=== PATIENT | female | born 1955 | race Caucasian/White ===

== ENCOUNTER 2017-01-29 10:16 | Day surgery (SDC) | payer OTHER ==
[2017-01-25 08:22] VITALS: BMI 29.2
[~2017-01-29 10:16] MED LIST: LACTATED RINGERS 1,000 ML IV SCH; LIDOCAINE 1% 20 ML VIAL (10MG/ML) FOR IV START INTRADERMA PRN
[2017-01-29] MEDS ORDERED: LACTATED RINGERS 1,000 ML IV ONE (10:44)
[2017-01-29 10:48] VITALS: RESP 18; TEMP 98
[2017-01-29] MEDS ORDERED: LIDOCAINE 1% INJ 10MG/ML (20 ML MDV) ONE (11:36)
[2017-01-29] MEDS ORDERED: PROPOFOL 10 MG/ML 20 ML VIAL IV ONE (11:36)
--- NOTE | 2017-01-29 12:02 | P.PCN ---
Date of Procedure: 01/29/17 Procedure(s) Performed: Procedure: Esophagogastroduodenoscopy and biopsy. Preoperative diagnosis: Heartburn and intermittent dysphagia. Postoperative diagnosis: 1. Small sliding hiatal hernia with no obvious esophagitis or complicated reflux disease. 2. Mild antral gastritis. 3. Multiple biopsies obtained from the duodenum, antrum and esophagus. Preparation: HalfLytely prep. Sedation: Was provided by anesthesia. Brief clinical history: The patient is a 61-year-old female with chronic reflux symptoms over the years. She has been having sticky sensation, retrosternally, with certain foods, intermittently, over the last couple years or so in addition to her heartburn. No other alarm symptoms or bleeding. This evaluation is to assess the degree of esophagitis and rule out complicated reflux disease or other pathology. The patient has family history of colon cancer in her dad and she is due for a repeat colonoscopy in 2019, and has family history of stomach cancer in her mother. This would be her first upper endoscopy. Procedure: With the patient on her left lateral decubitus position and after informed consent and adequate sedation, I passed the Olympus-GIF 160 video upper endoscope through the cricopharyngeus down the esophagus. EG junction was around 38 cm from the incisors and there was a small sliding hiatal hernia. The endoscope was then passed into the stomach which was insufflated with air and inspected in detail including the retroflex view in the cardia. There was some mottling and erythema in the antrum but no ulcers or erosions. Pyloric channel did not show any ulcers. Duodenal bulb, post bulbar area and descending duodenum, otherwise, appeared within normal limits. I obtained biopsies from the duodenum, antrum and esophagus then the endoscope was withdrawn. The patient tolerated the procedure well. Plan: The patient was reassured. Will await biopsy results and make additional recommendations based on her course and biopsy results. I be happy to see in the office if she remains symptomatic. She will follow-up with you as planned.
[2017-01-29 12:12] VITALS: BP 136/88; PULSE 65
== END 2017-01-29 12:38 | disposition home or self-care (01) ==
LOC: ORWHC2ENDO 10:16
DX: K21.0 Gastro-esophageal reflux disease with esophagitis (principal); K29.50 Unspecified chronic gastritis without bleeding; K44.9 Diaphragmatic hernia without obstruction or gangrene; E78.5 Hyperlipidemia, unspecified; Z91.09 Other allergy status, other than to drugs and biological substances; Z79.82 Long term (current) use of aspirin; Z79.899 Other long term (current) drug therapy
CPT/HCPCS: 88305; 88342; 43239; J2001; J2704

== ENCOUNTER 2017-06-19 03:05 | Inpatient (IN) | payer OTHER ==
[2017-06-19] MEDS ORDERED: MORPHINE SULFATE 4 MG/ML SYRINGE IV STA ×2 (03:40→06:57)
[2017-06-19 04:08] LABS: Appearance,Urine Clear (Clear); Bilirubin,Urine Negative (Negative); Glucose,Urine (UA) Negative (Negative); Ketones,Urine Negative (Negative); Leukocyte Esterase,Urine Negative (Negative); Nitrite,Urine Negative (Negative); Protein,Urine Negative (Negative); Specific Gravity,Urine 1.008 (1.001-1.035); UA Billing (MACRO vs. MICRO) CHEM; Urobilinogen,Urine <2.0 mg/dL (<2.0)
[2017-06-19 04:20] LABS: ALT 38 U/L (9-52); AST 25 U/L (14-36); Alkaline Phosphatase 59 U/L (38-126); Amylase 36 U/L (30-110); Anion Gap 11 mmol/L; Blood Urea Nitrogen 9 mg/dL (7-17); C Reactive Protein 37.9 mg/L (<10.0); Calcium 9.5 mg/dL (8.4-10.2); Carbon Dioxide 26 mmol/L (22-30); Chloride 104 mmol/L (98-107); Glucose 100 mg/dL (74-99); Non-African American GFR(MDRD) >60 (>60 ml/min/1.73 sqM); Potassium 4.1 mmol/L (3.5-5.1); Sodium 141 mmol/L (137-145); Total Bilirubin 0.4 mg/dL (0.2-1.3); Total Protein 6.6 g/dL (6.3-8.2)
[2017-06-19 04:40] LABS: Basophils % (A) 1 %; CH 32.6; Eosinophils # (A) 0.1 k/uL (0-0.7); Eosinophils % (A) 2 %; HCT 40.1 % (34.0-46.0); HDW 2.23; HGB 13.1 gm/dL (11.4-16.0); Luc # (Auto) 0.08; Luc % (Auto) 1; Lymphocytes % (A) 13 %; MCH 31.5 pg (25.0-35.0); MCHC 32.8 g/dL (31.0-37.0); MCV 96.2 fL (80.0-100.0); Mean Platelet Volume 8.8; Monocytes # (A) 0.4 k/uL (0-1.0); Monocytes % (A) 5 %; Neutrophils # (A) 5.9 k/uL (1.3-7.7); Neutrophils % (A) 79 %; RBC 4.17 m/uL (3.80-5.40); RDW 13.1 % (11.5-15.5); WBC 7.5 k/uL (3.8-10.6); WBC (Perox) 7.06
--- NOTE | 2017-06-19 05:22 | CT ---
EXAM: CT Abdomen and Pelvis Without Intravenous Contrast CLINICAL HISTORY: Reason: Pain TECHNIQUE: Axial computed tomography images of the abdomen and pelvis without intravenous contrast. CTDI is 9.10 mGy and DLP is 417.30 mGy-cm. This CT exam was performed using one or more of the following dose reduction techniques: automated exposure control, adjustment of the mA and/or kV according to patient size, and/or use of iterative reconstruction technique. COMPARISON: None. FINDINGS: Lower thorax: Atelectatic changes are seen involving both lower lobes, mild. ABDOMEN: Liver: Unremarkable. Gallbladder and bile ducts: Cholelithiasis is suspected. No ductal dilation. Pancreas: Unremarkable. No ductal dilation. Spleen: Unremarkable. No splenomegaly. Adrenals: Unremarkable. No mass. Kidneys and ureters: Unremarkable. No obstructing stones. No hydronephrosis. Stomach and bowel: Evaluation of the bowel is limited without the use of oral contrast material. Extensive colonic diverticulosis is seen. Wall thickening of the mid/distal transverse colon is seen in the region of colonic diverticula with associated pericolonic fatty infiltration. Constellation of findings are suggestive of acute diverticulitis. Mild pericolonic fatty infiltration is also seen involving the proximal transverse and mid descending colon in a region of extensive colonic diverticula. Constellation of findings are suggestive of acute diverticulitis. No obstruction. Appendix: No findings to suggest acute appendicitis. PELVIS: Bladder: Unremarkable. No stones. Reproductive: The uterus is not seen, likely representing prior hysterectomy. ABDOMEN and PELVIS: Intraperitoneal space: No evidence of free air. No evidence of fluid collection. A small amount of pelvic free fluid is seen, likely related to the above-mentioned findings. Bones/joints: Evaluation of the osseous structures demonstrates moderate degenerative changes. No acute fracture. No dislocation. Soft tissues: A small fat-containing umbilical hernia seen. Vasculature: Mild/moderate atherosclerotic vascular calcifications are seen involving the intra-abdominal aorta. No abdominal aortic aneurysm. Lymph nodes: Unremarkable. No enlarged lymph nodes. IMPRESSION: Acute diverticulitis involving the mid/distal transverse colon and, to lesser extent, the proximal transverse and mid descending colon. No evidence of fluid collection. No evidence of perforation.
[2017-06-19] MEDS ORDERED: MORPHINE SULFATE 4 MG/ML SYRINGE IV PRN (07:14)
[2017-06-19] MEDS ORDERED: NALOXONE 0.4 MG/ML 1 ML VIAL IV PRN (07:14)
[2017-06-19] MEDS ORDERED: ONDANSETRON 4 MG/2 ML VIAL IVP PRN (07:14)
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
[2017-06-19] MEDS: SODIUM CHLORIDE 0.9% 1,000 ML IV SCH ×2 (07:46→09:46)
[2017-06-19] MEDS: metroNIDAZOLE-NS PMX 500 MG in SALINE 1 100ML.BAG IVPB SCH ×3 (09:55→23:13)
[2017-06-19] MEDS: ASPIRIN 81 MG CHEW PO SCH (10:03)
[2017-06-19] MEDS: FAMOTIDINE 20 MG TAB PO SCH ×2 (10:03→20:09)
[2017-06-19] MEDS: DEXTROSE 5%-0.45% NACL 1,000 ML IV SCH ×2 (11:42→23:13)
[2017-06-19] MEDS: Lifitegrast [Xiidra] 1 DROP BOTH EYES SCH ×2 (11:45→20:09)
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
[2017-06-19] MEDS: MORPHINE SULFATE 2 MG/ML SYRINGE IV PRN ×3 (11:50→20:10)
[2017-06-19] MEDS: MULTIVITAMINS, THERA 1 EACH TAB PO SCH (14:16)
[2017-06-19] MEDS: LEVOFLOXACIN 750MG-D5W PMX 750 MG in DEXTROSE/WATER 1 150ML.BAG IVPB SCH (14:16)
[2017-06-19] MEDS: CHOLECALCIFEROL 1,000 UNIT TAB PO SCH (14:16)
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
[2017-06-19] MEDS: ATORVASTATIN 10 MG TAB PO SCH (20:09)
[2017-06-20] MEDS: MORPHINE SULFATE 2 MG/ML SYRINGE IV PRN (00:16)
[2017-06-20] MEDS: DEXTROSE 5%-0.45% NACL 1,000 ML IV SCH ×2 (07:45→20:00)
[2017-06-20] MEDS: metroNIDAZOLE-NS PMX 500 MG in SALINE 1 100ML.BAG IVPB SCH ×2 (07:45→15:21)
[2017-06-20] MEDS ORDERED: ACETAMINOPHEN IV (For NPO) 1,000 MG in EMPTY BAG 1 BAG IVPB STA (09:15)
[2017-06-20] MEDS ORDERED: MORPHINE SULFATE 2 MG/ML SYRINGE IV PRN (09:16)
[2017-06-20] MEDS: ASPIRIN 81 MG CHEW PO SCH (09:17)
[2017-06-20] MEDS: FAMOTIDINE 20 MG TAB PO SCH ×2 (09:17→20:19)
--- NOTE | 2017-06-20 09:21 | P.PN ---
Subjective A pleasant 61-year-old female being seen on rounds this morning. Patients being followed by surgical service at the request of the attending in a patient who developed left lower quadrant pain with a CAT scan showing evidence of left- sided diverticulitis. Patient states she's had multiple attacks of diverticulitis over the last several months. This morning the patient states there is a significant improvement in the left lower quadrant pain is is improving. Chief complaint this morning is migraine headache Objective - Vital Signs Vital signs: Vital Signs Temp 97.9 F 06/20/17 07:00 Pulse 63 06/20/17 07:00 Resp 16 06/20/17 07:00 BP 107/71 06/20/17 07:00 Pulse Ox 96 06/20/17 07:00 Intake & Output 06/19/17 06/20/17 06/20/17 18:59 06:59 18:59 Intake Total 850 1250 Output Total 500 Balance 850 750 Intake: Intake, IV Titration 850 1200 Amount Dextrose 5%-0.45% NaCl 1, 650 1200 000 ml @ 100 mls/hr IV . Q10H [facility] Rx#:[id number] Levofloxacin 750Mg-D5w 100 Pmx 750 mg In Dextrose/ Water 1 150ml.bag @ 100 mls/hr IVPB DAILY [facility] Rx# :[id number] metroNIDAZOLE-NS PMX 500 100 mg In Saline 1 100ml.bag @ 100 mls/hr IVPB Q8H [facility] Rx#:[id number] Oral 50 Output: Urine 500 Other: Voiding Method Toilet # Voids 2 - Exam Physical exam 61-year-old female pleasant cooperative resting in bed states left lower quadrant pain improving Lungs essentially clear adequate air movement Heart S1-S2 audible regular Abdomen soft not distended slight tenderness left lower quadrant bowel tones present states urinating no difficulty no reports of nausea vomiting no stool Extremities no edema - Labs CBC & Chem 7: 06/19/17 03:55 06/19/17 03:55 Assessment and Plan Plan: Impression Present on admission left lower quadrant pain suspect due to left-sided diverticulitis as evident on a CAT scan of the abdomen pelvis History of multiple attacks of diverticulitis over the last 6 months History of migraine headaches Plan Pain control DVT and GI prophylaxis Continue to monitor we'll hold the diet if pain continues to improve. Clear liquid Continue IV antibiotic Flagyl and Levaquin as ordered Treat the migraine headache with IV Tylenol 1 dose IV fluid as ordered The above impression and plan of care have been discussed and directed by signing physician. Grace Kelley nurse practitioner acting as scribe for signing physician.
[2017-06-20] MEDS: Lifitegrast [Xiidra] 1 DROP BOTH EYES SCH ×2 (09:32→20:19)
[2017-06-20] MEDS: LEVOFLOXACIN 750MG-D5W PMX 750 MG in DEXTROSE/WATER 1 150ML.BAG IVPB SCH (10:17)
[2017-06-20 10:44] VITALS: BMI 28.7
[2017-06-20] MEDS: CHOLECALCIFEROL 1,000 UNIT TAB PO SCH (12:51)
[2017-06-20] MEDS: MULTIVITAMINS, THERA 1 EACH TAB PO SCH (12:51)
--- NOTE | 2017-06-20 14:24 | P.PN ---
Subjective Patient is doing a lot better today. Pain is improving. She is still nothing by mouth. Objective - Vital Signs Vital signs: Vital Signs Temp 97.9 F 06/20/17 07:00 Pulse 63 06/20/17 07:00 Resp 16 06/20/17 07:00 BP 107/71 06/20/17 07:00 Pulse Ox 96 06/20/17 07:00 Intake & Output 06/19/17 06/20/17 06/20/17 18:59 06:59 18:59 Intake Total 850 1250 100 Output Total 500 Balance 850 750 100 Weight 71.214 kg Intake: Intake, IV Titration 850 1200 Amount Dextrose 5%-0.45% NaCl 1, 650 1200 000 ml @ 100 mls/hr IV . Q10H [facility] Rx#:[id number] Levofloxacin 750Mg-D5w 100 Pmx 750 mg In Dextrose/ Water 1 150ml.bag @ 100 mls/hr IVPB DAILY [facility] Rx# :[id number] metroNIDAZOLE-NS PMX 500 100 mg In Saline 1 100ml.bag @ 100 mls/hr IVPB Q8H [facility] Rx#:[id number] Oral 50 100 Output: Urine 500 Other: Voiding Method Toilet # Voids 2 2 - Exam General: The patient is awake and alert, in no distress Eye: there is normal conjunctiva bilaterally. Neck: The neck is supple, there is no JVD. Cardiovascular: Normal S1-S2, no S3-S4, no murmurs. Respiratory: Lungs clear to auscultation bilaterally Gastrointestinal: Abdomen is soft, nontender Musculoskeletal: There is no pedal edema. Neurological:. Speech is normal. Skin: Skin is warm and dry - Labs CBC & Chem 7: 06/19/17 03:55 06/19/17 03:55 Assessment and Plan Plan: 1. Acute diverticulitis involving the mid/distal transverse colon 2. Recurrent episodes of diverticulitis 3. mixed hyperlipidemia today, I reviewed her medication list lab work results. Continue IV fluid hydration and IV antibiotic with Levaquin and Flagyl. Pain control. Antiemetic as needed. Nothing by mouth for now as chips and clear liquids later on today if remains stable. Consulted general surgery for further evaluation of recurrent diverticulitis.
[2017-06-20] MEDS: ATORVASTATIN 10 MG TAB PO SCH (20:19)
[2017-06-21] MEDS: metroNIDAZOLE-NS PMX 500 MG in SALINE 1 100ML.BAG IVPB SCH ×3 (00:33→16:50)
[2017-06-21] MEDS: DEXTROSE 5%-0.45% NACL 1,000 ML IV SCH ×2 (05:56→14:26)
[2017-06-21] MEDS: FAMOTIDINE 20 MG TAB PO SCH ×2 (09:02→19:43)
[2017-06-21] MEDS: ASPIRIN 81 MG CHEW PO SCH (09:02)
[2017-06-21] MEDS: Lifitegrast [Xiidra] 1 DROP BOTH EYES SCH ×2 (09:03→19:43)
[2017-06-21] MEDS: LEVOFLOXACIN 750MG-D5W PMX 750 MG in DEXTROSE/WATER 1 150ML.BAG IVPB SCH (10:24)
--- NOTE | 2017-06-21 11:05 | P.PN ---
Subjective 61-year-old female being seen on rounds this morning patient continues to report having left lower quadrant abdominal discomfort states it's improving but continues to persist. Patient states is tolerating the clear liquid continues to report having cramping to the left lower abdominal wall. Reports no nausea no vomiting. Migraine headache gone this morning remains afebrile no labs. Patient is being followed by surgical service at the request of the attending for follow-up on the left lower quadrant pain with a CAT scan of the abdomen and pelvis showing left-sided diverticulitis. Patient has failed outpatient treatment had been on antibiotics in clear liquids prior to be presenting with the above-mentioned symptoms Objective - Vital Signs Vital signs: Vital Signs Temp 97.9 F 06/21/17 07:00 Pulse 62 06/21/17 07:00 Resp 16 06/21/17 07:00 BP 129/60 06/21/17 07:00 Pulse Ox 96 06/21/17 07:00 Intake & Output 06/20/17 06/21/17 06/21/17 18:59 06:59 18:59 Intake Total 100 2500 Balance 100 2500 Weight 71.214 kg Intake: Intake, IV Titration 2400 Amount Dextrose 5%-0.45% NaCl 1, 2400 000 ml @ 100 mls/hr IV . Q10H [facility] Rx#:[id number] Oral 100 100 Other: Voiding Method Toilet Toilet # Voids 2 2 # Bowel Movements 1 - Exam Physical exam 61-year-old female resting in bed continues to report having left lower quadrant pain has not completely resolved" Lungs essentially clear adequate air movement on room air Heart S1-S2 audible regular denying chest pain Abdomen soft not distended bowel tones present slight tenderness to the left lower quadrant urinating no difficulty states no stool Extremities no edema noted - Labs CBC & Chem 7: 06/19/17 03:55 06/19/17 03:55 Assessment and Plan Plan: Impression Present on admission left lower quadrant pain suspect due to left-sided diverticulitis as evident on a CAT scan of the abdomen pelvis History of multiple attacks of recurrent diverticulitis over the last 6 months History of migraine headaches Plan Pain control DVT and GI prophylaxis Continue to monitor we'll hold the diet if pain continues to improve. Clear liquid Continue IV antibiotic Flagyl and Levaquin as ordered IV fluid as ordered The above impression and plan of care have been discussed and directed by signing physician. Grace Kelley nurse practitioner acting as scribe for signing physician.
[2017-06-21] MEDS: MULTIVITAMINS, THERA 1 EACH TAB PO SCH (12:05)
[2017-06-21] MEDS: CHOLECALCIFEROL 1,000 UNIT TAB PO SCH (12:05)
[2017-06-21] MEDS ORDERED: Magnesium Replacement Protocol 1 EACH MISC MISCELLANE PRN (14:10)
[2017-06-21] MEDS ORDERED: Potassium Replacement Protocol 1 EACH MISC MISCELLANE PRN (14:10)
--- NOTE | 2017-06-21 14:12 | P.PN ---
Subjective Patient is doing a lot better today. Pain is improving. She was started on clear liquids and tolerating with no difficulty Objective - Vital Signs Vital signs: Vital Signs Temp 97.9 F 06/21/17 07:00 Pulse 62 06/21/17 07:00 Resp 16 06/21/17 07:00 BP 129/60 06/21/17 07:00 Pulse Ox 96 06/21/17 07:00 Intake & Output 06/20/17 06/21/17 06/21/17 18:59 06:59 18:59 Intake Total 100 2500 Balance 100 2500 Weight 71.214 kg Intake: Intake, IV Titration 2400 Amount Dextrose 5%-0.45% NaCl 1, 2400 000 ml @ 100 mls/hr IV . Q10H [facility] Rx#:[id number] Oral 100 100 Other: Voiding Method Toilet Toilet # Voids 2 2 # Bowel Movements 1 - Exam General: The patient is awake and alert, in no distress Eye: there is normal conjunctiva bilaterally. Neck: The neck is supple, there is no JVD. Cardiovascular: Normal S1-S2, no S3-S4, no murmurs. Respiratory: Lungs clear to auscultation bilaterally Gastrointestinal: Abdomen is soft, nontender Musculoskeletal: There is no pedal edema. Neurological:. Speech is normal. Skin: Skin is warm and dry - Labs CBC & Chem 7: 06/19/17 03:55 06/19/17 03:55 Assessment and Plan Plan: 1. Acute diverticulitis involving the mid/distal transverse colon 2. Recurrent episodes of diverticulitis 3. mixed hyperlipidemia today, I reviewed her medication list lab work results. Continue IV fluid hydration and IV antibiotic with Levaquin and Flagyl. Pain control. Antiemetic as needed. Advance diet as directed by general surgery. Consulted general surgery for further evaluation of recurrent diverticulitis. Anticipate discharge home within the next day or 2
[2017-06-21] MEDS: ATORVASTATIN 10 MG TAB PO SCH (19:43)
[2017-06-22] MEDS: metroNIDAZOLE-NS PMX 500 MG in SALINE 1 100ML.BAG IVPB SCH ×5 (00:16→23:23)
[2017-06-22 07:00] LABS: Basophils % (A) 0 %; CH 32.5; CHCM 34.2; Eosinophils # (A) 0.1 k/uL (0-0.7); Eosinophils % (A) 4 %; HCT 37.4 % (34.0-46.0); HDW 2.42; HGB 12.5 gm/dL (11.4-16.0); Luc # (Auto) 0.08; Luc % (Auto) 2; Lymphocytes # (A) 1.2 k/uL (1.0-4.8); Lymphocytes % (A) 32 %; MCHC 33.5 g/dL (31.0-37.0); MCV 95.4 fL (80.0-100.0); Mean Platelet Volume 8.9; Monocytes # (A) 0.3 k/uL (0-1.0); Monocytes % (A) 8 %; Neutrophils # (A) 1.9 k/uL (1.3-7.7); Neutrophils % (A) 54 %; RBC 3.92 m/uL (3.80-5.40); RDW 13.2 % (11.5-15.5); WBC 3.6 k/uL (3.8-10.6); WBC (Perox) 3.64
[2017-06-22 07:12] LABS: ALT 29 U/L (9-52); AST 23 U/L (14-36); Alkaline Phosphatase 42 U/L (38-126); Anion Gap 8 mmol/L; Blood Urea Nitrogen 6 mg/dL (7-17); Calcium 9.2 mg/dL (8.4-10.2); Carbon Dioxide 26 mmol/L (22-30); Chloride 108 mmol/L (98-107); Glucose 91 mg/dL (74-99); Magnesium 1.9 mg/dL (1.6-2.3); Non-African American GFR(MDRD) >60 (>60 ml/min/1.73 sqM); Potassium 3.8 mmol/L (3.5-5.1); Sodium 142 mmol/L (137-145); Total Bilirubin 0.4 mg/dL (0.2-1.3); Total Protein 5.9 g/dL (6.3-8.2)
[2017-06-22 07:24] VITALS: RESP 16
[2017-06-22] MEDS: LEVOFLOXACIN 750MG-D5W PMX 750 MG in DEXTROSE/WATER 1 150ML.BAG IVPB SCH (09:24)
[2017-06-22] MEDS: FAMOTIDINE 20 MG TAB PO SCH ×2 (09:26→20:26)
[2017-06-22] MEDS: ASPIRIN 81 MG CHEW PO SCH (09:26)
[2017-06-22] MEDS: Lifitegrast [Xiidra] 1 DROP BOTH EYES SCH ×2 (09:26→20:26)
--- NOTE | 2017-06-22 11:38 | P.PN ---
Subjective Patient is doing well today. Diet is being advanced by general surgery. Objective - Vital Signs Vital signs: Vital Signs Temp 97 F L 06/22/17 07:00 Pulse 61 06/22/17 07:00 Resp 16 06/22/17 07:00 BP 125/62 06/22/17 07:00 Pulse Ox 99 06/22/17 07:00 Intake & Output 06/21/17 06/22/17 06/22/17 18:59 06:59 18:59 Intake Total 600 Output Total 4 750 Balance -4 -150 Intake: Oral 600 Output: Urine 1 750 Stool 3 - Exam General: The patient is awake and alert, in no distress Eye: there is normal conjunctiva bilaterally. Neck: The neck is supple, there is no JVD. Cardiovascular: Normal S1-S2, no S3-S4, no murmurs. Respiratory: Lungs clear to auscultation bilaterally Gastrointestinal: Abdomen is soft, nontender Musculoskeletal: There is no pedal edema. Neurological:. Speech is normal. Skin: Skin is warm and dry - Labs CBC & Chem 7: 06/22/17 06:04 06/22/17 06:04 Labs: Abnormal Lab Results - Last 24 Hours (Table) 06/22/17 06/22/17 Range/Units 06:04 06:04 WBC 3.6 L (3.8-10.6) k/uL Chloride 108 H (98-107) mmol/L BUN 6 L (7-17) mg/dL Total Protein 5.9 L (6.3-8.2) g/dL Assessment and Plan Plan: 1. Acute diverticulitis involving the mid/distal transverse colon 2. Recurrent episodes of diverticulitis 3. mixed hyperlipidemia today, I reviewed her medication list lab work results. Continue IV fluid hydration and IV antibiotic with Levaquin and Flagyl. Pain control. Antiemetic as needed. Advance diet as directed by general surgery. Encouraged ambulation. Anticipate discharge home within the next day or 2
--- NOTE | 2017-06-22 13:03 | P.PN ---
Subjective Principal diagnosis: Diverticulitis Patient doing well today no combines of abdominal pain tolerating her clear liquid diet. No nausea vomiting. Objective - Vital Signs Vital signs: Vital Signs Temp 97 F L 06/22/17 07:00 Pulse 61 06/22/17 07:00 Resp 16 06/22/17 07:00 BP 125/62 06/22/17 07:00 Pulse Ox 99 06/22/17 07:00 Intake & Output 06/21/17 06/22/17 06/22/17 18:59 06:59 18:59 Intake Total 600 Output Total 4 750 Balance -4 -150 Intake: Oral 600 Output: Urine 1 750 Stool 3 - Constitutional General appearance: Present: cooperative - Cardiovascular Rhythm: regular - Gastrointestinal Gastrointestinal Comment(s): Soft nontender nondistended no rebound rigidity or guarding - Psychiatric Psychiatric: Present: A&O x's 3 - Labs CBC & Chem 7: 06/22/17 06:04 06/22/17 06:04 Labs: Abnormal Lab Results - Last 24 Hours (Table) 06/22/17 06/22/17 Range/Units 06:04 06:04 WBC 3.6 L (3.8-10.6) k/uL Chloride 108 H (98-107) mmol/L BUN 6 L (7-17) mg/dL Total Protein 5.9 L (6.3-8.2) g/dL Assessment and Plan (1) Diverticulitis Status: Acute Plan: Patient advanced to full liquid diet. If tolerating she can be discharged home on antibiotics. She can follow-up with
[2017-06-22] MEDS: CHOLECALCIFEROL 1,000 UNIT TAB PO SCH (13:11)
[2017-06-22] MEDS: MULTIVITAMINS, THERA 1 EACH TAB PO SCH (13:11)
[2017-06-22] MEDS: ATORVASTATIN 10 MG TAB PO SCH (20:26)
[2017-06-22] MEDS: DEXTROSE 5%-0.45% NACL 1,000 ML IV SCH (23:39)
[2017-06-23 07:19] LABS: Basophils % (A) 0 %; CH 32.3; CHCM 34.2; Eosinophils # (A) 0.2 k/uL (0-0.7); Eosinophils % (A) 4 %; HCT 37.5 % (34.0-46.0); HDW 2.44; HGB 12.5 gm/dL (11.4-16.0); Luc # (Auto) 0.07; Luc % (Auto) 2; Lymphocytes # (A) 1.4 k/uL (1.0-4.8); Lymphocytes % (A) 34 %; MCH 31.5 pg (25.0-35.0); MCHC 33.2 g/dL (31.0-37.0); MCV 94.8 fL (80.0-100.0); Mean Platelet Volume 8.7; Monocytes # (A) 0.3 k/uL (0-1.0); Monocytes % (A) 7 %; Neutrophils # (A) 2.1 k/uL (1.3-7.7); Neutrophils % (A) 53 %; RBC 3.96 m/uL (3.80-5.40); RDW 12.9 % (11.5-15.5); WBC (Perox) 3.87
[2017-06-23 07:21] VITALS: BP 125/76; PULSE 62; TEMP 97.4
[2017-06-23 07:37] LABS: ALT 30 U/L (9-52); AST 27 U/L (14-36); Alkaline Phosphatase 39 U/L (38-126); Anion Gap 9 mmol/L; Blood Urea Nitrogen 8 mg/dL (7-17); Calcium 9.1 mg/dL (8.4-10.2); Carbon Dioxide 24 mmol/L (22-30); Chloride 109 mmol/L (98-107); Glucose 84 mg/dL (74-99); Magnesium 1.9 mg/dL (1.6-2.3); Non-African American GFR(MDRD) >60 (>60 ml/min/1.73 sqM); Potassium 4.4 mmol/L (3.5-5.1); Sodium 142 mmol/L (137-145); Total Bilirubin 0.2 mg/dL (0.2-1.3); Total Protein 5.5 g/dL (6.3-8.2)
[2017-06-23] MEDS: metroNIDAZOLE-NS PMX 500 MG in SALINE 1 100ML.BAG IVPB SCH (07:54)
[2017-06-23] MEDS: FAMOTIDINE 20 MG TAB PO SCH (07:56)
[2017-06-23] MEDS: Lifitegrast [Xiidra] 1 DROP BOTH EYES SCH (07:56)
[2017-06-23] MEDS: ASPIRIN 81 MG CHEW PO SCH (07:56)
[2017-06-23] MEDS: LEVOFLOXACIN 750MG-D5W PMX 750 MG in DEXTROSE/WATER 1 150ML.BAG IVPB SCH (09:47)
--- NOTE | 2017-06-23 12:51 | P.PN ---
Subjective Principal diagnosis: Diverticulitis Patient doing well today no combines of abdominal pain tolerating her soft diet. No nausea vomiting. Objective - Vital Signs Vital signs: Vital Signs Temp 97.4 F L 06/23/17 07:00 Pulse 62 06/23/17 07:00 Resp 16 06/23/17 07:00 BP 125/76 06/23/17 07:00 Pulse Ox 98 06/23/17 07:00 Intake & Output 06/22/17 06/23/17 06/23/17 18:59 06:59 18:59 Intake Total 400 1150 Balance 400 1150 Intake: IV 400 300 Dextrose 5%-0.45% NaCl 1, 400 300 000 ml @ 50 mls/hr IV . Q20H [facility] Rx#:[id number] Intake, IV Titration 150 Amount Dextrose 5%-0.45% NaCl 1, 150 000 ml @ 50 mls/hr IV . Q20H [facility] Rx#:[id number] Oral 700 Other: Voiding Method Toilet # Voids 1 2 - Constitutional General appearance: Present: average body habitus - Respiratory Details: Nonlabored - Cardiovascular Rhythm: regular - Gastrointestinal Gastrointestinal Comment(s): Soft nontender nondistended - Psychiatric Psychiatric: Present: A&O x's 3 - Labs CBC & Chem 7: 06/23/17 06:07 06/23/17 06:07 Labs: Abnormal Lab Results - Last 24 Hours (Table) 06/23/17 Range/Units 06:07 Chloride 109 H (98-107) mmol/L Total Protein 5.5 L (6.3-8.2) g/dL Albumin 3.4 L (3.5-5.0) g/dL Assessment and Plan (1) Diverticulitis Status: Acute Plan: Patient is tolerating a soft diet. She is surgically stable for discharge on PO antibiotics and follow up with Dr. Penaloza in the clinic
--- NOTE | 2017-06-23 13:47 | P.DS ---
Providers Date of admission: 06/19/17 07:14 Expected date of discharge: 06/23/17 Attending physician: Desiree Dominguez Consults: 06/19/17 11:39 Consult Physician Routine Consulting Provider: Zain Penaloza Consult Reason/Comments: recurrent diverticulitis Do you want consulting provider notified?: Yes Primary care physician: Britta Chavis Hospital Course: 1. Acute diverticulitis involving the mid/distal transverse colon 2. Recurrent episodes of diverticulitis 3. mixed hyperlipidemia Patient's overall clinical condition improved significantly with supportive care and conservative management. She will finish antibiotic course with Levaquin and Flagyl at home for a total of 14 days. She will follow up as directed with her primary care physician. She will need a colonoscopy within the next 6 weeks. Patient Condition at Discharge: Fair Plan - Discharge Summary New Discharge Prescriptions: New Levofloxacin [Levaquin] 500 mg PO DAILY #7 tab metroNIDAZOLE [Flagyl] 500 mg PO Q8HR #21 tab Continue Multivitamins, Thera [Multivitamin (formulary)] 1 tab PO DAILY Cholecalciferol [Vitamin D3] 5,000 unit PO DAILY Aspirin [Adult Low Dose Aspirin EC] 81 mg PO DAILY Simvastatin [Zocor] 10 mg PO HS Lifitegrast [Xiidra] 1 dropper BOTH EYES BID Discontinued metroNIDAZOLE [Flagyl] 500 mg PO BID Ciprofloxacin HCl [Cipro] 500 mg PO Q12HR Discharge Medication List Aspirin [Adult Low Dose Aspirin EC] 81 mg PO DAILY 01/25/17 [History] Cholecalciferol [Vitamin D3] 5,000 unit PO DAILY 01/25/17 [History] Lifitegrast [Xiidra] 1 dropper BOTH EYES BID 01/25/17 [History] Multivitamins, Thera [Multivitamin (formulary)] 1 tab PO DAILY 01/25/17 [History ] Simvastatin [Zocor] 10 mg PO HS 01/25/17 [History] Levofloxacin [Levaquin] 500 mg PO DAILY #7 tab 06/23/17 [Rx] metroNIDAZOLE [Flagyl] 500 mg PO Q8HR #21 tab 06/23/17 [Rx] Follow up Appointment(s)/Referral(s): Britta Chavis MD [Primary Care Provider] - 1-2 days Discharge Disposition: HOME SELF-CARE
[2017-06-23] MEDS ORDERED: metroNIDAZOLE 500 MG TAB PO SCH (16:00)
[2017-06-24] MEDS ORDERED: LEVOFLOXACIN 750 MG TAB PO SCH (09:00)
== END 2017-06-23 14:20 | disposition home or self-care (01) | DRG 392 ==
LOC: EC 03:05 → 3SUR 07:14
PROVIDERS: ADMIT Internal Medicine; ATTEND Internal Medicine
DX: K57.92 Diverticulitis of intestine, part unspecified, without perforation or abscess without bleeding (principal); E78.2 Mixed hyperlipidemia; K21.9 Gastro-esophageal reflux disease without esophagitis; M17.0 Bilateral primary osteoarthritis of knee; M19.041 Primary osteoarthritis, right hand; M19.042 Primary osteoarthritis, left hand; Z79.899 Other long term (current) drug therapy; Z79.82 Long term (current) use of aspirin; Z80.3 Family history of malignant neoplasm of breast; Z80.0 Family history of malignant neoplasm of digestive organs; Z87.891 Personal history of nicotine dependence; Z87.828 Personal history of other (healed) physical injury and trauma; Z98.41 Cataract extraction status, right eye; Z98.42 Cataract extraction status, left eye; Z86.69 Personal history of other diseases of the nervous system and sense organs; Z87.19 Personal history of other diseases of the digestive system; Z90.710 Acquired absence of both cervix and uterus
CPT/HCPCS: 36415; 74176; 80053; 81003; 82150; 83690; 83735; 85025; 86140; 96374; 96376; 99285

== ENCOUNTER → 2017-07-12 | Outpatient (CLI) | payer OTHER | END | disposition home or self-care (01) | LOC: LABPAT 12:27 | PROVIDERS: ATTEND Surgery | DX: Z01.812 Encounter for preprocedural laboratory examination (principal); K57.92 Diverticulitis of intestine, part unspecified, without perforation or abscess without bleeding | CPT/HCPCS: 93005 ==

== ENCOUNTER 2017-07-17 07:53 | Day surgery (SDC) | payer OTHER ==
[2017-07-10 16:42] VITALS: BMI 28.7
[2017-07-17 08:08] VITALS: RESP 16; TEMP 98.2
[2017-07-17] MEDS ORDERED: LIDOCAINE 1% 20 ML VIAL (10MG/ML) FOR IV START INTRADERMA ONE (08:10)
[2017-07-17] MEDS ORDERED: LIDOCAINE 1% INJ 10MG/ML (20 ML MDV) ONE (09:28)
[2017-07-17] MEDS ORDERED: PROPOFOL 10 MG/ML 20 ML VIAL IV ONE (09:28)
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
--- NOTE | 2017-07-17 09:53 | P.OP ---
Date of Procedure: 07/17/17 Preoperative Diagnosis: Diverticulitis Postoperative Diagnosis: Diverticulosis Procedure(s) Performed: Colonoscopy Anesthesia: MAC Surgeon: Zain Penaloza Pathology: none sent Condition: stable Disposition: PACU Description of Procedure: The patient's placed on the endoscopy table in the lateral position. The digital rectal exam was performed which revealed no abnormalities. Flexible colonoscope was then placed patient anus and passed throughout the entire colon. The ileocecal valve was visualized. The cecum and ascending colon appeared normal. In the transverse colon was a few scattered diverticula. The scope was then brought back in the descending and sigmoid colon there was a few scattered diverticula. Scope was then brought back the rectum this appeared normal. Scope was withdrawn for patient.
[2017-07-17 10:23] VITALS: BP 130/79; PULSE 63
== END 2017-07-17 10:45 | disposition home or self-care (01) ==
LOC: ORWHC2ENDO 07:53
PROVIDERS: ATTEND Surgery
DX: K57.30 Diverticulosis of large intestine without perforation or abscess without bleeding (principal); K21.9 Gastro-esophageal reflux disease without esophagitis; K44.9 Diaphragmatic hernia without obstruction or gangrene; E78.5 Hyperlipidemia, unspecified; M19.90 Unspecified osteoarthritis, unspecified site; F41.9 Anxiety disorder, unspecified; Z80.0 Family history of malignant neoplasm of digestive organs; Z79.82 Long term (current) use of aspirin; Z79.899 Other long term (current) drug therapy; Z91.041 Radiographic dye allergy status
CPT/HCPCS: 45378; J2001; J2704

== ENCOUNTER 2017-07-18 07:27 | Inpatient (IN) | payer OTHER, BC ==
[2017-07-10 15:40] VITALS: BMI 28.7
[~2017-07-18 07:27] MED LIST changes: +DEXAMETHASONE SOD PHOSPHATE 10 MG/ML 1 ML VIAL IV ONE; +HEPARIN SODIUM,PORCINE 5,000 UNIT/ML 1 ML VIAL SQ ONE; +HYDROmorphone 1 MG/ML 1 ML SYRINGE IVP PRN; -LACTATED RINGERS 1,000 ML IV SCH; -LIDOCAINE 1% 20 ML VIAL (10MG/ML) FOR IV START INTRADERMA PRN; +MIDAZOLAM 2 MG/2 ML VIAL IV PRN; +ONDANSETRON 4 MG/2 ML VIAL IVP ONE; +ceFAZolin 2 GM in SODIUM CHLORIDE 0.9% 100 ML IVPB ONE; +metroNIDAZOLE-NS PMX 500 MG in SALINE 1 100ML.BAG IVPB ONE
[2017-07-18] MEDS ORDERED: LIDOCAINE 1% 20 ML VIAL (10MG/ML) FOR IV START INTRADERMA ONE (08:29)
[2017-07-18] MEDS: LACTATED RINGERS 1,000 ML IV SCH (08:29)
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
[2017-07-18] MEDS ORDERED: GLYCOPYRROLATE 0.2 MG/ML 2 ML VIAL ONE (09:40)
[2017-07-18] MEDS ORDERED: LIDOCAINE 1% INJ 10MG/ML (20 ML MDV) ONE (09:40)
[2017-07-18] MEDS ORDERED: MIDAZOLAM 2 MG/2 ML VIAL ONE (09:40)
[2017-07-18] MEDS ORDERED: SUCCINYLCHOLINE CHLORIDE 100 MG/5 ML SYR IV ONE (09:40)
[2017-07-18] MEDS ORDERED: ROCURONIUM BROMIDE 10 MG/ML 10 ML VIAL IV ONE (09:40)
[2017-07-18] MEDS ORDERED: ESMOLOL 100 MG/10 ML VIAL ONE (09:40)
[2017-07-18] MEDS ORDERED: NEOSTIGMINE 1 MG/ML 10 ML VIAL ONE (09:40)
[2017-07-18] MEDS ORDERED: PROPOFOL 10 MG/ML 20 ML VIAL IV ONE (09:40)
[2017-07-18] MEDS ORDERED: fentaNYL (PF) 50 MCG/ML 2 ML AMP ONE (09:40)
[2017-07-18] MEDS ORDERED: BUPIVACAINE (PF) 0.5% 30 ML VIAL SQ ONE ×2 (10:18)
[2017-07-18] MEDS ORDERED: LIDOCAINE 2%-EPI 1:100,000 20 ML VIAL SQ ONE (10:18)
[2017-07-18] MEDS ORDERED: LACTATED RINGERS 1,000 ML IV ONE ×2 (10:51)
[2017-07-18] MEDS ORDERED: NALOXONE 0.4 MG/ML 1 ML VIAL IV PRN ×2 (11:12→16:46)
[2017-07-18] MEDS ORDERED: METOCLOPRAMIDE 5 MG/ML 2 ML VIAL IVP PRN (11:56)
[2017-07-18] MEDS ORDERED: BENZOCAINE/MENTHOL LOZENG 1 EACH LOZENGE MUCOUS MEM PRN (11:56)
[2017-07-18] MEDS ORDERED: ONDANSETRON 4 MG/2 ML VIAL IVP PRN (11:56)
[2017-07-18] MEDS: BUPIVACAINE (PF) 0.5% 31.3 ML, HYDROMORPHONE (PF) 5 MG in SODIUM CHLORIDE 0.9% 218 ML EPIDURAL PRN ×2 (12:33→12:56)
--- NOTE | 2017-07-18 12:42 | P.OP ---
Date of Procedure: 07/18/17 Preoperative Diagnosis: Diverticulitis Postoperative Diagnosis: Diverticulitis Incisional hernia Procedure(s) Performed: Exposure laparotomy Low anterior section Takedown of splenic flexure Partial greater omentectomy Repair of incisional hernia Anesthesia: LUIS MIGUEL Surgeon: Zain Penaloza Estimated Blood Loss (ml): 25 Pathology: other (Sigmoid colon, omentum) Condition: stable Disposition: PACU Description of Procedure: The patient's placed on the operative table in the supine position. She received general anesthesia. She was then placed in dorsal lithotomy position. Her abdomen was prepped and draped usual sterile fashion. A Veress needles placed in the left upper quadrant and then the abdomen was insufflated. After adequate insufflation the 5 mm optical trocar was placed into the pleural cavity in the right lower lateral position. Another 5 mm trochars placed under direct position in the right upper quadrant and a third 5 mm trochars placed in the infraumbilical position. The sigmoid colon and left colon was visualized. There appeared to be evidence of diverticulitis just distal to the splenic flexure. There were diverticular changes along the descending and sigmoid colon. at this point using the harmonic scissors the left colon and sigmoid colon mobilized by dividing the white line of toldt. the splenic flexure was taken down with the harmonic scissors and the transverse colon was mobilized using the harmonic scissors. the patient was noted to have an incisional hernia. next the trochars withdrawn. the skin was incised and left cautery used to divide the fascia. the incisional hernia contained a portion of incarcerated the pre-peritoneal fat. The mid transverse colon was transected with a GI stapler. And then using LigaSure device the mesentery of the distal transverse colon and left colon and sigmoid colon were divided. A portion of nonviable omentum was transected with the LigaSure device. And then using the GI stapler the proximal rectum was transected. A [id number] functional end-to-end staple anastomosis was then created using the POLI and TA stapler. A 3-0 GI silk suture was used as a crotch stitch. The abdomen was then irrigated there is no bleeding seen. The fascia was closed with #1 PDS suture. The incisional hernia was repaired at that time. The skin was closed interrupted 3-0 Monocryl suture. Dermabond dressings was applied. Patient was sent to recovery in stable condition.
[2017-07-18 15:16] LABS: Anion Gap 12 mmol/L; Blood Urea Nitrogen 13 mg/dL (7-17); Calcium 9.1 mg/dL (8.4-10.2); Carbon Dioxide 21 mmol/L (22-30); Chloride 107 mmol/L (98-107); Glucose 128 mg/dL (74-99); Non-African American GFR(MDRD) >60 (>60 ml/min/1.73 sqM); Potassium 4.8 mmol/L (3.5-5.1); Sodium 140 mmol/L (137-145)
[2017-07-18 15:38] LABS: Basophils % (A) 0 %; CHCM 33.3; Eosinophils # (A) 0.1 k/uL (0-0.7); Eosinophils % (A) 1 %; HCT 42.5 % (34.0-46.0); HDW 2.18; HGB 14.2 gm/dL (11.4-16.0); Luc # (Auto) 0.03; Luc % (Auto) 0; Lymphocytes # (A) 0.7 k/uL (1.0-4.8); Lymphocytes % (A) 6 %; MCH 32.4 pg (25.0-35.0); MCHC 33.5 g/dL (31.0-37.0); MCV 96.6 fL (80.0-100.0); Mean Platelet Volume 10.2; Monocytes # (A) 0.3 k/uL (0-1.0); Monocytes % (A) 3 %; Neutrophils # (A) 10.6 k/uL (1.3-7.7); Neutrophils % (A) 91 %; RDW 13.5 % (11.5-15.5); WBC 11.7 k/uL (3.8-10.6); WBC (Perox) 11.92
[2017-07-18] MEDS: D5-0.45% NACL WITH KCL 20MEQ/L 1,000 ML IV SCH ×2 (15:41→21:21)
[2017-07-18] MEDS: HEPARIN SODIUM,PORCINE 5,000 UNIT/ML 1 ML VIAL SQ SCH ×2 (16:47→23:45)
[2017-07-18] MEDS ORDERED: ALPRAZolam 0.25 MG TAB PO PRN (18:04)
[2017-07-18] MEDS: BUPIVACAINE (PF) 0.5% 50 ML, HYDROMORPHONE (PF) 5 MG in SODIUM CHLORIDE 0.9% 200 ML EPIDURAL PRN (18:15)
[2017-07-18] MEDS: ALVIMOPAN 12 MG CAPSULE PO SCH (21:19)
[2017-07-18] MEDS: FAMOTIDINE 20 MG/2 ML VIAL IV SCH (21:20)
[2017-07-18] MEDS: ATORVASTATIN 10 MG TAB PO SCH (21:21)
[2017-07-18] MEDS: NON-FORMULARY DRUG (Lifitegrast [Xiidra] 1 DROP) BOTH EYES SCH (22:45)
[2017-07-19] MEDS: D5-0.45% NACL WITH KCL 20MEQ/L 1,000 ML IV SCH (05:49)
[2017-07-19] MEDS: LACTATED RINGERS 1,000 ML IV SCH (06:10)
[2017-07-19] MEDS: HEPARIN SODIUM,PORCINE 5,000 UNIT/ML 1 ML VIAL SQ SCH ×3 (08:18→23:57)
[2017-07-19] MEDS: ALVIMOPAN 12 MG CAPSULE PO SCH ×2 (08:18→21:36)
[2017-07-19] MEDS: CHOLECALCIFEROL 1,000 UNIT TAB PO SCH (08:18)
[2017-07-19] MEDS: ASPIRIN 81 MG PO SCH (08:19)
[2017-07-19] MEDS: MULTIVITAMINS, THERA 1 EACH TAB PO SCH (08:19)
[2017-07-19] MEDS: FAMOTIDINE 20 MG/2 ML VIAL IV SCH ×2 (08:19→21:36)
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
--- NOTE | 2017-07-19 12:09 | P.PN ---
Progress Note - Text 1005 Anesthesia POD 1. Status Post low anterior resection under general endotracheal anesthesia with an epidrual catheter placed at L3 for post surgical pain releif. VAS (0, 2) with Bupivicaine 0.1 % and Dilaudid 20 mcg / cc running at 7 cc / hr. Lower extremity strength (3/4) on the left and 4/4 on the right. No sedation. Site looks OK. Patient was quite uncomfortable yesterday evening with bupivacaine 0.0625% and Dilaudid 20 mcg/mL. This was running at 9 mL/h and was providing little pain relief. Because of this we increase the bupivacaine concentration to 0.1% to good effect. Earlier this morning the infusion rate was at 8 mL per hour and is been backed off to 7 mL/h to attempt to ameliorate the left quadriceps weakness.
--- NOTE | 2017-07-19 13:57 | P.PN ---
Subjective 61-year-old female being seen on rounds. Currently is sitting up in a chair. Patient states pain medication is effective for pain control abdominal binder in place surgical dressing dry indwelling Fine catheter in place reports no nausea sensation tolerating clear liquid. Patient states she has not passed any gas rectally or been belching. Status post July 18 exposure laparotomy, low anterior resection, takedown of splenic flexure, partial greater omentectomy with repair of incisional hernia Objective - Vital Signs Vital signs: Vital Signs Temp 98.5 F 07/19/17 07:00 Pulse 76 07/19/17 07:00 Resp 16 07/19/17 07:00 BP 97/59 07/19/17 07:00 Pulse Ox 94 L 07/19/17 07:00 Intake & Output 07/18/17 07/19/17 07/19/17 18:59 06:59 18:59 Intake Total 1714.7 2000 Output Total 225 1450 Balance 1489.7 550 Intake: IV 1714.7 Intake, IV Titration 2000 Amount D5-0.45% NaCl with KCl 2000 20Meq/l 1,000 ml @ 125 mls/hr IV .Q8H [facility] Rx#: [id number] Output: Urine 200 1450 Estimated Blood Loss 25 Other: Voiding Method Indwelling Catheter Indwelling Catheter Indwelling Catheter - Exam Physical exam Pleasant 61-year-old female sitting up in a chair appears in no acute distress states pain medication effective for pain control epidural for pain management in place anesthesia monitoring Lungs essentially clear with adequate air movement on room air sats are 95% Heart S1-S2 audible and regular denying chest pain Abdomen a few hypoactive bowel tones abdominal binder in place surgical dressing to site dry indwelling Fine catheter in place reports no nausea no vomiting tolerating clear liquid Extremities reports has a numb tingly sensation to the left hip radiating to the left upper thigh no edema noted - Labs CBC & Chem 7: 07/18/17 14:50 07/18/17 14:50 Labs: Abnormal Lab Results - Last 24 Hours (Table) 07/18/17 07/18/17 Range/Units 14:50 14:50 WBC 11.7 H (3.8-10.6) k/uL Neutrophils # 10.6 H (1.3-7.7) k/uL Lymphocytes # 0.7 L (1.0-4.8) k/uL Carbon Dioxide 21 L (22-30) mmol/L Glucose 128 H (74-99) mg/dL Assessment and Plan Plan: Impression History of multiple recurrent episodes diverticulitis over the last 8 months Postop 18 of July low anterior resection for diverticulitis Postop repair of incisional hernia done on the 18 July Generalized anxiety disorder nonspecified Mixed hyperlipidemia Plan Continue postop surgical course Continue epidural per anesthesia for pain control Continue DVT and GI prophylaxis Increase activity as tolerated Increase use of incentive spirometer Clear liquid diet and monitor response Monitor labs address as indicated The above impression and plan of care have been discussed and directed by signing physician. Grace Kelley nurse practitioner acting as scribe for signing physician.
[2017-07-19] MEDS: NON-FORMULARY DRUG (Lifitegrast [Xiidra] 1 DROP) BOTH EYES SCH ×2 (18:57→21:37)
[2017-07-19] MEDS: BUPIVACAINE (PF) 0.5% 50 ML, HYDROMORPHONE (PF) 5 MG in SODIUM CHLORIDE 0.9% 200 ML EPIDURAL PRN (21:12)
[2017-07-19] MEDS: ATORVASTATIN 10 MG TAB PO SCH (21:36)
[2017-07-19] MEDS: diphenhydrAMINE 50 MG/ML 1 ML VIAL IVP PRN (21:46)
[2017-07-20] MEDS: diphenhydrAMINE 50 MG/ML 1 ML VIAL IVP PRN (04:39)
[2017-07-20] MEDS: LACTATED RINGERS 1,000 ML IV SCH (08:19)
[2017-07-20] MEDS: D5-0.45% NACL WITH KCL 20MEQ/L 1,000 ML IV SCH ×4 (08:23→13:56)
[2017-07-20] MEDS: HEPARIN SODIUM,PORCINE 5,000 UNIT/ML 1 ML VIAL SQ SCH ×3 (08:44→23:14)
[2017-07-20] MEDS: ALVIMOPAN 12 MG CAPSULE PO SCH ×2 (08:45→20:27)
[2017-07-20] MEDS: ASPIRIN 81 MG PO SCH (08:48)
[2017-07-20] MEDS: FAMOTIDINE 20 MG/2 ML VIAL IV SCH (08:48)
[2017-07-20] MEDS: NON-FORMULARY DRUG (Lifitegrast [Xiidra] 1 DROP) BOTH EYES SCH ×2 (08:48→20:27)
--- NOTE | 2017-07-20 11:19 | P.PN ---
Progress Note - Text 07/20 1050am 61-year-old female status post low anterior resection. Patient has epidural for postop pain control running at 7 mL an hour. Pain well controlled, complains of left knee numbness. I asked the nurse to reduce the rate to 5 mL an hour. Plan to continue epidural infusion
--- NOTE | 2017-07-20 11:38 | P.PN ---
Subjective 61-year-old female seen and examined at bedside. She currently states she is doing well however she is feeling tired. She has been ambulating in the hallways. She is tolerating her clear liquid diet without any nausea without any emesis. She states her pain is overall well-controlled. Fine catheter is in place that she is producing an adequate amount of urine. She states that she has had some mild bowel function with some loose stool and flatus. Objective - Vital Signs Vital signs: Vital Signs Temp 98.0 F 07/20/17 07:00 Pulse 68 07/20/17 07:00 Resp 16 07/20/17 07:00 BP 128/69 07/20/17 07:00 Pulse Ox 99 07/20/17 07:00 Intake & Output 07/19/17 07/20/17 07/20/17 18:59 06:59 18:59 Intake Total 3265.6 109.967 Output Total 1800 3675 Balance -1800 -409.4 109.967 Intake: Intake, IV Titration 2215.6 109.967 Amount Bupivacaine (Pf) 0.5% 50 215.6 109.967 ml Hydromorphone (Pf) 5 mg In Sodium Chloride 0.9 % 200 ml @ Per Protocol EPIDURAL .Q0M [facility] Rx#: [id number] D5-0.45% NaCl with KCl 2000 20Meq/l 1,000 ml @ 125 mls/hr IV .Q8H [facility] Rx#: [id number] Oral 1050 Output: Urine 1800 3675 Other: Voiding Method Indwelling Catheter Indwelling Catheter Indwelling Catheter # Bowel Movements 1 - Constitutional General appearance: Present: cooperative, no acute distress - EENT Eyes: Present: EOMI, PERRLA ENT: Present: hearing grossly normal - Neck Neck: Present: normal ROM. Absent: lymphadenopathy, stridor - Respiratory Details: No difficulty with respiration - Cardiovascular Rhythm: regular Heart sounds: normal: S1, S2 - Gastrointestinal Gastrointestinal Comment(s): Soft, appropriate tenderness, nondistended, no rebound, no guarding, incision site is clean, dry and intact - Musculoskeletal Musculoskeletal: Present: gait normal - Psychiatric Psychiatric: Present: A&O x's 3, appropriate affect, intact judgment & insight - Labs CBC & Chem 7: 07/18/17 14:50 07/18/17 14:50 Assessment and Plan (1) Diverticulitis Status: Acute Plan: Status post low interior resection Continue postop surgical course Continue epidural per anesthesia for pain control - decreased to 5 today Continue DVT and GI prophylaxis Increase activity as tolerated Increase use of incentive spirometer Clear liquid diet and monitor response
--- NOTE | 2017-07-20 13:14 | P.PN ---
Subjective Patient is doing well today. No events overnight. She continues to have numbness in the left lower extremity. Objective - Vital Signs Vital signs: Vital Signs Temp 98.0 F 07/20/17 07:00 Pulse 68 07/20/17 07:00 Resp 16 07/20/17 07:00 BP 128/69 07/20/17 07:00 Pulse Ox 99 07/20/17 07:00 Intake & Output 07/19/17 07/20/17 07/20/17 18:59 06:59 18:59 Intake Total 3265.6 109.967 Output Total 1800 3675 Balance -1800 -409.4 109.967 Intake: Intake, IV Titration 2215.6 109.967 Amount Bupivacaine (Pf) 0.5% 50 215.6 109.967 ml Hydromorphone (Pf) 5 mg In Sodium Chloride 0.9 % 200 ml @ Per Protocol EPIDURAL .Q0M PRN Rx#: [id number] D5-0.45% NaCl with KCl 2000 20Meq/l 1,000 ml @ 125 mls/hr IV .Q8H [facility] Rx#: [id number] Oral 1050 Output: Urine 1800 3675 Other: Voiding Method Indwelling Catheter Indwelling Catheter Indwelling Catheter # Bowel Movements 1 - Exam General: The patient is awake and alert, in no distress Eye: there is normal conjunctiva bilaterally. Neck: The neck is supple, there is no JVD. Cardiovascular: Normal S1-S2, no S3-S4, no murmurs. Respiratory: Lungs clear to auscultation bilaterally Gastrointestinal: Abdomen is soft, nontender Musculoskeletal: There is no pedal edema. Neurological:. Speech is normal. Skin: Skin is warm and dry - Labs CBC & Chem 7: 07/18/17 14:50 07/18/17 14:50 Assessment and Plan Plan: 1. Postoperative day #2 status post low anterior resection, takedown of splenic flexor, and partially greater omentectomy with incisional hernia repair. Continue postoperative care. Epidural management anesthesia. Fine catheter in place. Tolerating liquid diet with no difficulty. 2. Mixed hyperlipidemia 3. Generalized anxiety disorder 4. History of recurrent diverticulitis 5. DVT prophylaxis with subcu heparin Today, I reviewed her medication list and lab work results. Continue current regimen. Thank you very much for the consultation. I will continue to follow up on the patient closely.
[2017-07-20] MEDS: MULTIVITAMINS, THERA 1 EACH TAB PO SCH (13:53)
[2017-07-20] MEDS: CHOLECALCIFEROL 1,000 UNIT TAB PO SCH (13:53)
[2017-07-20] MEDS: FAMOTIDINE 20 MG TAB PO SCH (20:27)
[2017-07-20] MEDS: ATORVASTATIN 10 MG TAB PO SCH (20:27)
[2017-07-20] MEDS: BUPIVACAINE (PF) 0.5% 50 ML, HYDROMORPHONE (PF) 5 MG in SODIUM CHLORIDE 0.9% 200 ML EPIDURAL PRN (21:41)
[2017-07-21] MEDS: diphenhydrAMINE 50 MG/ML 1 ML VIAL IVP PRN (00:17)
[2017-07-21] MEDS: D5-0.45% NACL WITH KCL 20MEQ/L 1,000 ML IV SCH (04:22)
[2017-07-21 08:39] LABS: Basophils % (A) 0 %; CH 31.6; CHCM 32.7; Eosinophils # (A) 0.2 k/uL (0-0.7); Eosinophils % (A) 4 %; HDW 2.24; HGB 13.1 gm/dL (11.4-16.0); Luc # (Auto) 0.07; Luc % (Auto) 1; Lymphocytes # (A) 1.3 k/uL (1.0-4.8); Lymphocytes % (A) 24 %; MCH 32.5 pg (25.0-35.0); MCHC 33.6 g/dL (31.0-37.0); MCV 96.9 fL (80.0-100.0); Mean Platelet Volume 9.5; Monocytes # (A) 0.4 k/uL (0-1.0); Monocytes % (A) 6 %; Neutrophils # (A) 3.5 k/uL (1.3-7.7); Neutrophils % (A) 64 %; RBC 4.02 m/uL (3.80-5.40); RDW 13.4 % (11.5-15.5); WBC 5.4 k/uL (3.8-10.6); WBC (Perox) 5.63
[2017-07-21 09:02] LABS: Anion Gap 11 mmol/L; Calcium 9.1 mg/dL (8.4-10.2); Carbon Dioxide 25 mmol/L (22-30); Chloride 103 mmol/L (98-107); Glucose 77 mg/dL (74-99); Non-African American GFR(MDRD) >60 (>60 ml/min/1.73 sqM); Sodium 139 mmol/L (137-145); Total Bilirubin 0.8 mg/dL (0.2-1.3)
[2017-07-21 09:07] LABS: ALT 33 U/L (9-52); AST 40 U/L (14-36); Alkaline Phosphatase 39 U/L (38-126); Blood Urea Nitrogen 4 mg/dL (7-17); Potassium 4.5 mmol/L (3.5-5.1)
[2017-07-21 09:08] LABS: Total Protein 6.1 g/dL (6.3-8.2)
[2017-07-21] MEDS ORDERED: MORPHINE SULFATE 2 MG/ML SYRINGE IVP PRN (09:29)
--- NOTE | 2017-07-21 09:34 | P.PN ---
Subjective 61-year-old female seen and examined at bedside. She states that she is tired this morning. Pain is well-controlled. Fine catheter is in place. She is making adequate amount of urine. She states that she had multiple liquid bowel movements. She is tolerating her clear liquid diet and denies any nausea and denies any emesis. Objective - Vital Signs Vital signs: Vital Signs Temp 98.2 F 07/21/17 07:00 Pulse 69 07/21/17 07:00 Resp 17 07/21/17 07:00 BP 119/57 07/21/17 07:00 Pulse Ox 98 07/21/17 07:00 Intake & Output 07/20/17 07/21/17 07/21/17 18:59 06:59 18:59 Intake Total 709.967 651.583 Output Total 2200 2400 Balance -1490.033 -1748.417 Intake: Intake, IV Titration 109.967 651.583 Amount Bupivacaine (Pf) 0.5% 50 109.967 51.583 ml Hydromorphone (Pf) 5 mg In Sodium Chloride 0.9 % 200 ml @ Per Protocol EPIDURAL .Q0M [facility] Rx#: [id number] D5-0.45% NaCl with KCl 600 20Meq/l 1,000 ml @ 75 mls /hr IV .[id number] [facility] Rx#: [id number] Oral 600 Output: Urine 2200 2400 Uretheral (Fine) 800 2400 Other: Voiding Method Indwelling Catheter Indwelling Catheter Indwelling Catheter # Bowel Movements 1 - Constitutional General appearance: Present: cooperative, no acute distress - EENT Eyes: Present: EOMI, PERRLA ENT: Present: hearing grossly normal - Neck Neck: Present: normal ROM. Absent: lymphadenopathy, stridor - Respiratory Details: No difficulty with respiration - Cardiovascular Rhythm: regular Heart sounds: normal: S1, S2 - Gastrointestinal Gastrointestinal Comment(s): Soft, nondistended, appropriate tenderness, no rebound, no guarding, incision site clean dry and intact - Integumentary Integumentary: Present: normal turgor - Psychiatric Psychiatric: Present: A&O x's 3, appropriate affect, intact judgment & insight - Labs CBC & Chem 7: 07/21/17 07:49 07/21/17 07:49 Labs: Abnormal Lab Results - Last 24 Hours (Table) 07/21/17 07/21/17 Range/Units 07:49 07:49 Plt Count 132 L (150-450) k/uL BUN 4 L (7-17) mg/dL AST 40 H (14-36) U/L Total Protein 6.1 L (6.3-8.2) g/dL Assessment and Plan (1) Diverticulitis Status: Acute Plan: Status post low interior resection Continue postop surgical course Continue epidural per anesthesia for pain control, I have added when necessary dosing if epidural is discontinued today Continue DVT and GI prophylaxis Increase activity as tolerated Increase use of incentive spirometer Advanced to full liquid diet Discontinued IV fluids
[2017-07-21] MEDS: LACTATED RINGERS 1,000 ML IV SCH (09:39)
[2017-07-21] MEDS: HEPARIN SODIUM,PORCINE 5,000 UNIT/ML 1 ML VIAL SQ SCH ×3 (09:53→23:30)
[2017-07-21] MEDS: ALVIMOPAN 12 MG CAPSULE PO SCH ×2 (09:53→20:04)
[2017-07-21] MEDS: ASPIRIN 81 MG PO SCH (09:55)
[2017-07-21] MEDS: NON-FORMULARY DRUG (Lifitegrast [Xiidra] 1 DROP) BOTH EYES SCH ×2 (09:55→20:04)
[2017-07-21] MEDS: FAMOTIDINE 20 MG TAB PO SCH ×2 (09:55→20:04)
--- NOTE | 2017-07-21 12:28 | P.PN ---
Subjective Patient is doing well today. No events overnight. Epidural was discontinued this morning. Objective - Vital Signs Vital signs: Vital Signs Temp 98.2 F 07/21/17 07:00 Pulse 69 07/21/17 07:00 Resp 17 07/21/17 07:00 BP 119/57 07/21/17 07:00 Pulse Ox 98 07/21/17 07:00 Intake & Output 07/20/17 07/21/17 07/21/17 18:59 06:59 18:59 Intake Total 709.967 651.583 72.083 Output Total 2200 2400 Balance -1490.033 -1748.417 72.083 Intake: Intake, IV Titration 109.967 651.583 72.083 Amount Bupivacaine (Pf) 0.5% 50 109.967 51.583 72.083 ml Hydromorphone (Pf) 5 mg In Sodium Chloride 0.9 % 200 ml @ Per Protocol EPIDURAL .Q0M [facility] Rx#: [id number] D5-0.45% NaCl with KCl 600 20Meq/l 1,000 ml @ 75 mls /hr IV .[id number] [facility] Rx#: [id number] Oral 600 Output: Urine 2200 2400 Uretheral (Fine) 800 2400 Other: Voiding Method Indwelling Catheter Indwelling Catheter Indwelling Catheter # Bowel Movements 1 - Exam General: The patient is awake and alert, in no distress Eye: there is normal conjunctiva bilaterally. Neck: The neck is supple, there is no JVD. Cardiovascular: Normal S1-S2, no S3-S4, no murmurs. Respiratory: Lungs clear to auscultation bilaterally Gastrointestinal: Abdomen is soft, nontender Musculoskeletal: There is no pedal edema. Neurological:. Speech is normal. Skin: Skin is warm and dry - Labs CBC & Chem 7: 07/21/17 07:49 07/21/17 07:49 Labs: Abnormal Lab Results - Last 24 Hours (Table) 07/21/17 07/21/17 Range/Units 07:49 07:49 Plt Count 132 L (150-450) k/uL BUN 4 L (7-17) mg/dL AST 40 H (14-36) U/L Total Protein 6.1 L (6.3-8.2) g/dL Assessment and Plan Plan: 1. Postoperative day #3 status post low anterior resection, takedown of splenic flexor, and partially greater omentectomy with incisional hernia repair. Continue postoperative care. Epidural management anesthesia. Fine catheter in place. Tolerating liquid diet with no difficulty. 2. Mixed hyperlipidemia 3. Generalized anxiety disorder 4. History of recurrent diverticulitis 5. DVT prophylaxis with subcu heparin Today, I reviewed her medication list and lab work results. Continue current regimen. Thank you very much for the consultation. I will continue to follow up on the patient closely.
[2017-07-21] MEDS: MULTIVITAMINS, THERA 1 EACH TAB PO SCH (12:58)
[2017-07-21] MEDS: CHOLECALCIFEROL 1,000 UNIT TAB PO SCH (12:58)
--- NOTE | 2017-07-21 13:44 | P.PN ---
Progress Note - Text 07/21 920am 61-year-old female status post low anterior resection. Epidural solution running at 5 mL an hour, VAS of 2. Ambulating, doing well. Epidural DC'd nurse informed.
[2017-07-21] MEDS: HYDROcodone/APAP 7.5-325MG 1 EACH TAB PO PRN ×2 (17:38→23:30)
[2017-07-21] MEDS: ATORVASTATIN 10 MG TAB PO SCH (20:04)
[2017-07-22] MEDS: HYDROcodone/APAP 7.5-325MG 1 EACH TAB PO PRN ×4 (04:59→21:37)
[2017-07-22] MEDS: LACTATED RINGERS 1,000 ML IV SCH (06:09)
[2017-07-22 07:33] LABS: Basophils % (A) 0 %; CH 31.7; CHCM 32.6; Eosinophils # (A) 0.2 k/uL (0-0.7); Eosinophils % (A) 6 %; HCT 36.5 % (34.0-46.0); HDW 2.18; HGB 12.1 gm/dL (11.4-16.0); Luc # (Auto) 0.06; Luc % (Auto) 2; Lymphocytes # (A) 1.1 k/uL (1.0-4.8); Lymphocytes % (A) 28 %; MCH 32.4 pg (25.0-35.0); MCHC 33.2 g/dL (31.0-37.0); MCV 97.5 fL (80.0-100.0); Mean Platelet Volume 8.5; Monocytes # (A) 0.2 k/uL (0-1.0); Monocytes % (A) 5 %; Neutrophils # (A) 2.3 k/uL (1.3-7.7); Neutrophils % (A) 60 %; RBC 3.75 m/uL (3.80-5.40); RDW 13.5 % (11.5-15.5); WBC 3.8 k/uL (3.8-10.6); WBC (Perox) 4.23
[2017-07-22 07:34] LABS: ALT 42 U/L (9-52); AST 40 U/L (14-36); Alkaline Phosphatase 58 U/L (38-126); Anion Gap 7 mmol/L; Blood Urea Nitrogen 6 mg/dL (7-17); Carbon Dioxide 30 mmol/L (22-30); Chloride 102 mmol/L (98-107); Glucose 90 mg/dL (74-99); Non-African American GFR(MDRD) >60 (>60 ml/min/1.73 sqM); Potassium 4.2 mmol/L (3.5-5.1); Sodium 139 mmol/L (137-145); Total Bilirubin 0.7 mg/dL (0.2-1.3); Total Protein 5.5 g/dL (6.3-8.2)
[2017-07-22] MEDS: ALVIMOPAN 12 MG CAPSULE PO SCH ×2 (09:51→21:00)
[2017-07-22] MEDS: FAMOTIDINE 20 MG TAB PO SCH ×2 (09:52→21:00)
[2017-07-22] MEDS: ASPIRIN 81 MG PO SCH ×2 (09:52→16:23)
[2017-07-22] MEDS: CHOLECALCIFEROL 1,000 UNIT TAB PO SCH ×2 (09:52→16:23)
[2017-07-22] MEDS: MULTIVITAMINS, THERA 1 EACH TAB PO SCH ×2 (09:53→16:23)
[2017-07-22] MEDS: NON-FORMULARY DRUG (Lifitegrast [Xiidra] 1 DROP) BOTH EYES SCH ×2 (09:53→21:00)
[2017-07-22] MEDS: HEPARIN SODIUM,PORCINE 5,000 UNIT/ML 1 ML VIAL SQ SCH ×2 (09:53→16:35)
--- NOTE | 2017-07-22 11:39 | P.PN ---
Subjective 61-year-old female seen and examined at the bedside. Patient has been up ambulating in the hallway this morning. Patient's tolerating full liquid diet states had an episode last night of incontinent stool. Patient states yesterday she was experiencing multiple loose bowel movements no blood noted. Patient denies any nausea. Patient states urinating no difficulty. Patient is afebrile. Denies dizziness lightheadedness chest pain or shortness of breath. Status post July 18 exposure laparotomy, low anterior resection, takedown of splenic flexure, partial greater omentectomy with repair of incisional hernia Objective - Vital Signs Vital signs: Vital Signs Temp 98.0 F 07/22/17 07:00 Pulse 67 07/22/17 07:00 Resp 14 07/22/17 07:00 BP 102/61 07/22/17 07:00 Pulse Ox 98 07/22/17 07:00 Intake & Output 07/21/17 07/22/17 07/22/17 18:59 06:59 18:59 Intake Total 067.122 7516 180 Output Total 1200 Balance -371.191 8231 180 Intake: Intake, IV Titration 091.713 0081 Amount Bupivacaine (Pf) 0.5% 50 72.083 ml Hydromorphone (Pf) 5 mg In Sodium Chloride 0.9 % 200 ml @ Per Protocol EPIDURAL .Q0M [facility] Rx#: [id number] D5-0.45% NaCl with KCl 450 1400 20Meq/l 1,000 ml @ 75 mls /hr IV .[id number] [facility] Rx#: [id number] Oral 240 180 Output: Urine 1200 Other: Voiding Method Indwelling Catheter Indwelling Catheter # Voids 3 - Exam Physical exam Pleasant 61-year-old female up ambulating in the hallway earlier this morning currently resting in bed Lungs essentially clear with adequate air movement on room air sats are 95% Heart S1-S2 audible and regular denying chest pain Abdomen a few hypoactive bowel tones abdominal binder in place surgical dressing in place. States pain medication effective for pain control tolerating a full liquid diet. Reports no nausea vomiting. States had an episode of incontinent stool last night. Reports yesterday having multiple loose stools no blood noted Extremities reports has a numb tingly sensation to the left hip radiating to the left upper thigh no edema noted - Labs CBC & Chem 7: 07/22/17 06:42 07/22/17 06:42 Labs: Abnormal Lab Results - Last 24 Hours (Table) 07/22/17 07/22/17 Range/Units 06:42 06:42 RBC 3.75 L (3.80-5.40) m/uL Plt Count 143 L (150-450) k/uL BUN 6 L (7-17) mg/dL AST 40 H (14-36) U/L Total Protein 5.5 L (6.3-8.2) g/dL Albumin 3.3 L (3.5-5.0) g/dL Assessment and Plan Plan: Impression History of multiple recurrent episodes diverticulitis over the last 8 months Postop 18 of July low anterior resection for diverticulitis Postop repair of incisional hernia done on the 18 July Generalized anxiety disorder nonspecified Mixed hyperlipidemia Plan Continue postop surgical course Continue DVT and GI prophylaxis Increase activity as tolerated Increase use of incentive spirometer Full liquid diet advance as tolerated Monitor labs address as indicated The above impression and plan of care have been discussed and directed by signing physician. Grace Kelley nurse practitioner acting as scribe for signing physician.
--- NOTE | 2017-07-22 12:47 | P.PN ---
Subjective Patient is doing well today. No bowel movement yet. She is passing gas. No pain. Objective - Vital Signs Vital signs: Vital Signs Temp 98.0 F 07/22/17 07:00 Pulse 67 07/22/17 07:00 Resp 14 07/22/17 07:00 BP 102/61 07/22/17 07:00 Pulse Ox 98 07/22/17 07:00 Intake & Output 07/21/17 07/22/17 07/22/17 18:59 06:59 18:59 Intake Total 002.286 0792 180 Output Total 1200 Balance -932.515 2255 180 Intake: Intake, IV Titration 836.744 8728 Amount Bupivacaine (Pf) 0.5% 50 72.083 ml Hydromorphone (Pf) 5 mg In Sodium Chloride 0.9 % 200 ml @ Per Protocol EPIDURAL .Q0M [facility] Rx#: [id number] D5-0.45% NaCl with KCl 450 1400 20Meq/l 1,000 ml @ 75 mls /hr IV .[id number] [facility] Rx#: [id number] Oral 240 180 Output: Urine 1200 Other: Voiding Method Indwelling Catheter Indwelling Catheter # Voids 3 - Exam General: The patient is awake and alert, in no distress Eye: there is normal conjunctiva bilaterally. Neck: The neck is supple, there is no JVD. Cardiovascular: Normal S1-S2, no S3-S4, no murmurs. Respiratory: Lungs clear to auscultation bilaterally Gastrointestinal: Abdomen is soft, nontender Musculoskeletal: There is no pedal edema. Neurological:. Speech is normal. Skin: Skin is warm and dry - Labs CBC & Chem 7: 07/22/17 06:42 07/22/17 06:42 Labs: Abnormal Lab Results - Last 24 Hours (Table) 07/22/17 07/22/17 Range/Units 06:42 06:42 RBC 3.75 L (3.80-5.40) m/uL Plt Count 143 L (150-450) k/uL BUN 6 L (7-17) mg/dL AST 40 H (14-36) U/L Total Protein 5.5 L (6.3-8.2) g/dL Albumin 3.3 L (3.5-5.0) g/dL Assessment and Plan Plan: 1. Status post low anterior resection, takedown of splenic flexor, and partially greater omentectomy with incisional hernia repair. Continue postoperative care. Tolerating diet with no difficulty. 2. Mixed hyperlipidemia 3. Generalized anxiety disorder 4. History of recurrent diverticulitis 5. DVT prophylaxis with subcu heparin Today, I reviewed her medication list and lab work results. Continue current regimen. Thank you very much for the consultation. I will continue to follow up on the patient closely.
[2017-07-22] MEDS: ATORVASTATIN 10 MG TAB PO SCH (21:00)
[2017-07-23] MEDS: HEPARIN SODIUM,PORCINE 5,000 UNIT/ML 1 ML VIAL SQ SCH ×2 (00:15→08:48)
[2017-07-23] MEDS: HYDROcodone/APAP 7.5-325MG 1 EACH TAB PO PRN (03:14)
[2017-07-23 07:21] LABS: ALT 46 U/L (9-52); AST 34 U/L (14-36); Alkaline Phosphatase 67 U/L (38-126); Anion Gap 9 mmol/L; Blood Urea Nitrogen 7 mg/dL (7-17); Calcium 9.2 mg/dL (8.4-10.2); Carbon Dioxide 28 mmol/L (22-30); Chloride 102 mmol/L (98-107); Glucose 86 mg/dL (74-99); Non-African American GFR(MDRD) >60 (>60 ml/min/1.73 sqM); Potassium 4.1 mmol/L (3.5-5.1); Sodium 139 mmol/L (137-145); Total Bilirubin 0.7 mg/dL (0.2-1.3); Total Protein 6.3 g/dL (6.3-8.2)
[2017-07-23] MEDS ORDERED: BISACODYL 10 MG SUPP RECTAL STA (07:45)
[2017-07-23] MEDS: NON-FORMULARY DRUG (Lifitegrast [Xiidra] 1 DROP) BOTH EYES SCH (08:49)
[2017-07-23] MEDS: FAMOTIDINE 20 MG TAB PO SCH (08:50)
[2017-07-23] MEDS: ALVIMOPAN 12 MG CAPSULE PO SCH (08:50)
[2017-07-23] MEDS: ASPIRIN 81 MG PO SCH (08:53)
[2017-07-23] MEDS ORDERED: ACETAMINOPHEN TAB 325 MG TAB PO PRN (10:25)
[2017-07-23 10:54] VITALS: BP 122/64; PULSE 85; RESP 16; TEMP 97.6
[2017-07-23] MEDS: LACTATED RINGERS 1,000 ML IV SCH (10:57)
--- NOTE | 2017-07-23 11:34 | P.PN ---
Subjective Patient is doing well today. No bowel movement yet. She is passing gas. No pain. Objective - Vital Signs Vital signs: Vital Signs Temp 97.6 F 07/23/17 10:52 Pulse 85 07/23/17 10:52 Resp 16 07/23/17 10:52 BP 122/64 07/23/17 10:52 Pulse Ox 98 07/23/17 10:52 Intake & Output 07/22/17 07/23/17 07/23/17 18:59 06:59 18:59 Intake Total 298 1080 Balance 298 1080 Intake: Oral 298 1080 Other: Voiding Method Toilet # Voids 2 2 - Exam General: The patient is awake and alert, in no distress Eye: there is normal conjunctiva bilaterally. Neck: The neck is supple, there is no JVD. Cardiovascular: Normal S1-S2, no S3-S4, no murmurs. Respiratory: Lungs clear to auscultation bilaterally Gastrointestinal: Abdomen is soft, nontender Musculoskeletal: There is no pedal edema. Neurological:. Speech is normal. Skin: Skin is warm and dry - Labs CBC & Chem 7: 07/22/17 06:42 07/23/17 06:45 Assessment and Plan Plan: 1. Status post low anterior resection, takedown of splenic flexor, and partially greater omentectomy with incisional hernia repair. Continue postoperative care. Tolerating diet with no difficulty. 2. Mixed hyperlipidemia 3. Generalized anxiety disorder 4. History of recurrent diverticulitis 5. DVT prophylaxis with subcu heparin Today, I reviewed her medication list and lab work results. Continue current regimen. Thank you very much for the consultation. I will continue to follow up on the patient closely.
[2017-07-23] MEDS: MULTIVITAMINS, THERA 1 EACH TAB PO SCH (13:07)
[2017-07-23] MEDS: CHOLECALCIFEROL 1,000 UNIT TAB PO SCH (13:07)
--- NOTE | 2017-07-23 13:12 | P.DS ---
Providers Date of admission: 07/18/17 07:27 Expected date of discharge: 07/23/17 Attending physician: Zain Armando Consults: 07/18/17 11:59 Consult Physician Routine Consulting Provider: Bonilla Pace Consult Reason/Comments: Medical management Do you want consulting provider notified?: Yes Primary care physician: Britta [facility] Course: 61-year-old female admitted to undergo an elective laparoscopic low anterior resection for episodes of recurrent diverticulitis for the last 8 months patient underwent procedure on July 18 exposure laparotomy low anterior section takedown of splenic fixture partial greater omentectomy and a repair of an incisional hernia for a diagnosis of diverticulitis and an incisional hernia. Postop there were no events. On the day of discharge patient was ambulatory on the unit pain medication effective for pain control patient was given a Dulcolax suppository had a bowel movement passing gas. Surgical incision well approximated no redness. Patient was felt to be appropriate to be discharged home Impression discharge diagnosis History of multiple recurrent episodes diverticulitis over the last 8 months Postop 18 of July low anterior resection for diverticulitis Postop repair of incisional hernia done on the 18 July Generalized anxiety disorder nonspecified Mixed hyperlipidemia The above impression and plan of care have been discussed and directed by signing physician. Grace Kelley nurse practitioner acting as scribe for signing physician. Plan - Discharge Summary New Discharge Prescriptions: New Acetaminophen Tab [Tylenol] 650 mg PO Q6HR PRN tab PRN Reason: Fever And/ Or Pain HYDROcodone/APAP 7.5-325MG [[place] 7.5-325] 1 each PO Q6H PRN #30 tab PRN Reason: Pain Continue Multivitamins, Thera [Multivitamin (formulary)] 1 tab PO DAILY Cholecalciferol [Vitamin D3] 5,000 unit PO DAILY Aspirin [Adult Low Dose Aspirin EC] 81 mg PO DAILY Simvastatin [Zocor] 10 mg PO HS Lifitegrast [Xiidra] 1 drop BOTH EYES BID Acetaminophen [Tylenol Extra Strength] 500 - 1,000 mg PO Q6H PRN PRN Reason: Pain ALPRAZolam [Xanax] 0.25 mg PO Q4H PRN PRN Reason: Anxiety Discharge Medication List Aspirin [Adult Low Dose Aspirin EC] 81 mg PO DAILY 01/25/17 [History] Cholecalciferol [Vitamin D3] 5,000 unit PO DAILY 01/25/17 [History] Lifitegrast [Xiidra] 1 drop BOTH EYES BID 01/25/17 [History] Multivitamins, Thera [Multivitamin (formulary)] 1 tab PO DAILY 01/25/17 [History ] Simvastatin [Zocor] 10 mg PO HS 01/25/17 [History] ALPRAZolam [Xanax] 0.25 mg PO Q4H PRN 07/10/17 [History] Acetaminophen [Tylenol Extra Strength] 500 - 1,000 mg PO Q6H PRN 07/10/17 [ History] Acetaminophen Tab [Tylenol] 650 mg PO Q6HR PRN tab 07/23/17 [Rx] HYDROcodone/APAP 7.5-325MG [[place] 7.5-325] 1 each PO Q6H PRN #30 tab 07/23/17 [ Rx] Follow up Appointment(s)/Referral(s): Zain Armando MD [STAFF PHYSICIAN] - 07/26/17 Activity/Diet/Wound Care/Special Instructions: May shower no tub bath until seen in a follow-up visit with Dr. armando No lifting anything greater than a milk carton tell seen in the follow-up visit Report any redness at surgical sites fever chills or drainage Discharge Disposition: HOME SELF-CARE
== END 2017-07-23 14:52 | disposition home or self-care (01) | DRG 331 ==
LOC: 2ORWHC 07:27 → 3SUR 12:09
PROVIDERS: ADMIT Surgery; ATTEND Surgery
PROC: 0WQF0ZZ Repair Abdominal Wall, Open Approach (ICD-10-PCS; principal; 2017-07-18 08:55)
PROC: 0DTN4ZZ Resection of Sigmoid Colon, Percutaneous Endoscopic Approach (ICD-10-PCS; principal; 2017-07-18 08:55)
PROC: 0DBU4ZZ Excision of Omentum, Percutaneous Endoscopic Approach (ICD-10-PCS; principal; 2017-07-18 08:55)
DX: K57.32 Diverticulitis of large intestine without perforation or abscess without bleeding (principal); E78.2 Mixed hyperlipidemia; F41.1 Generalized anxiety disorder; K21.9 Gastro-esophageal reflux disease without esophagitis; K43.2 Incisional hernia without obstruction or gangrene; M17.0 Bilateral primary osteoarthritis of knee; Z79.82 Long term (current) use of aspirin; Z79.899 Other long term (current) drug therapy; Z80.0 Family history of malignant neoplasm of digestive organs; Z80.3 Family history of malignant neoplasm of breast; Z87.891 Personal history of nicotine dependence; Z91.041 Radiographic dye allergy status
CPT/HCPCS: 80048; 80053; 85025; 86850; 86900; 86901; 88307

== ENCOUNTER → 2018-05-23 | Outpatient (CLI) | payer BC ==
--- NOTE | 2018-05-25 15:49 | CT ---
EXAMINATION TYPE: CT abdomen pelvis w con DATE OF EXAM: 05/23/2018 COMPARISON: 06/19/2017 INDICATION: Pelvic pain for 1 month DLP: 769.9 mGycm, Automated exposure control for dose reduction was used. CONTRAST: 100 mL of Isovue 300. Study performed with Oral Contrast TECHNIQUE: Axial images were obtained from above the diaphragm to the pubic rami in the axial plane a t 5 mm thick sections. Reconstructed images are reviewed on the computer in the coronal plane. FINDINGS: Limited CT sections are obtained the lung bases. The lung bases are clear. CT ABDOMEN: Liver: Normal Spleen: Normal Pancreas: Normal Adrenal glands: The adrenal glands are normal. Gallbladder: Normal Kidneys: No masses are evident. No hydronephrosis is present. No cysts are present. Delayed images were obtained through the kidneys, which remain unremarkable. Aorta: Vascular calcification is within the aorta. Inferior vena cava: Normal. CT PELVIS: Loops of bowel within the abdomen and pelvis are normal. There are loops of bowel which are incom pletely distended or lack oral contrast limiting their evaluation. Postsurgical changes within the co gini are noted. Fecal debris is in the distal colon. Appendix: Normal as visualized. Urinary bladder: Normal. Genitourinary structures: Uterus and ovaries are not identified. Osseous structures: No suspicious lytic or sclerotic lesions. Sacroiliac joint degenerative changes a re noted with vacuum phenomenon. IMPRESSIONS: 1. No suspicious change to account for pelvic pain. 2. Mild fecal retention
== END | disposition home or self-care (01) ==
LOC: RADCTMAIN 17:52
PROVIDERS: ATTEND Surgery
DX: K57.32 Diverticulitis of large intestine without perforation or abscess without bleeding (principal)
CPT/HCPCS: 74177; Q9967

== ENCOUNTER → 2021-06-27 | Outpatient (CLI) | payer MEDICARE ==
--- NOTE | 2021-06-27 15:10 | XR ---
EXAMINATION TYPE: XR abdomen 2V DATE OF EXAM: 06/27/2021 COMPARISON: None HISTORY: Right-sided abdomen pain TECHNIQUE: 2 view abdomen, supine and upright views FINDINGS: Normal colonic bowel gas is present. Some postsurgical changes are within the left midabdom en. Psoas margins are normal. No free air is evident. No suspicious differential air-fluid levels are evident. No suspicious calcifications are evident. Osseous structures appear intact. IMPRESSION: 1. Normal three-view abdomen
== END | disposition home or self-care (01) ==
LOC: RADXRMAIN 13:30
PROVIDERS: ATTEND Nurse Practitioner Family
DX: R10.9 Unspecified abdominal pain (principal)
CPT/HCPCS: 74019

== ENCOUNTER 2021-06-30 13:14 | Emergency (ER) | payer MEDICARE ==
[2021-06-30 14:33] VITALS: BP 113/74; PULSE 71; RESP 20; TEMP 97.6
--- NOTE | 2021-06-30 15:51 | XR ---
EXAMINATION TYPE: XR chest 2V DATE OF EXAM: 06/30/2021 COMPARISON: NONE HISTORY: Shortness of breath TECHNIQUE: Frontal and lateral views of the chest are obtained. FINDINGS: Scattered senescent parenchymal changes noted. Hyperinflation compatible with COPD. No evidence for infiltrate. No evidence for atelectasis. Heart size is stable. Mediastinal structures are stable and grossly unremarkable. No evidence for hilar prominence. Degenerative changes dorsal spine. IMPRESSION: 1. No evidence for acute pulmonary disease.
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
[2021-06-30 18:32] LABS: ALT 25 U/L (4-34); AST 45 U/L (14-36); African American GFR (CKD) >90 (>60 ml/min/1.73 sqM); Albumin 4.6 g/dL (3.5-5.0); Alkaline Phosphatase 35 U/L (38-126); Anion Gap 12 mmol/L; Blood Urea Nitrogen 15 mg/dL (7-17); Calcium 9.6 mg/dL (8.4-10.2); Carbon Dioxide 22 mmol/L (22-30); Chloride 109 mmol/L (98-107); Glucose 87 mg/dL (74-99); Magnesium 2.2 mg/dL (1.6-2.3); Non-African American GFR(CKD) 86 (>60 ml/min/1.73 sqM); Sodium 143 mmol/L (137-145); Total Protein 7.2 g/dL (6.3-8.2)
[2021-06-30 18:55] LABS: Basophils % (A) 0 %; Eosinophils # (A) 0.1 k/uL (0-0.7); Eosinophils % (A) 2 %; HCT 40.6 % (34.0-46.0); HGB 14.1 gm/dL (11.4-16.0); Lymphocytes # (A) 1.4 k/uL (1.0-4.8); Lymphocytes % (A) 29 %; MCH 33.6 pg (25.0-35.0); MCHC 34.8 g/dL (31.0-37.0); MCV 96.5 fL (80.0-100.0); Mean Platelet Volume 10.8; Monocytes # (A) 0.6 k/uL (0-1.0); Monocytes % (A) 12 %; Neutrophils # (A) 2.5 k/uL (1.3-7.7); Neutrophils % (A) 54 %; Platelet Count 170 k/uL (150-450); RDW 13.5 % (11.5-15.5); WBC 4.7 k/uL (3.8-10.6)
[2021-06-30 20:29] LABS: Large Platelets Present
== END 2021-06-30 20:18 | disposition home or self-care (01) ==
LOC: EC 13:14
DX: R00.2 Palpitations (principal); E78.5 Hyperlipidemia, unspecified; K21.9 Gastro-esophageal reflux disease without esophagitis; M19.90 Unspecified osteoarthritis, unspecified site; F41.9 Anxiety disorder, unspecified; F12.90 Cannabis use, unspecified, uncomplicated; Z79.82 Long term (current) use of aspirin; Z91.041 Radiographic dye allergy status; Z90.710 Acquired absence of both cervix and uterus
CPT/HCPCS: 36415; 71046; 80053; 83735; 84439; 84443; 84484; 85025; 93005; 99285

== ENCOUNTER 2021-07-29 00:26 | Emergency (ER) | payer MEDICARE ==
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
--- NOTE | 2021-07-29 02:19 | XR ---
EXAMINATION TYPE: XR chest 1V portable DATE OF EXAM: 07/29/2021 COMPARISON: 06/30/2021 HISTORY: Short of breath TECHNIQUE: Jose De Jesus view FINDINGS: Heart and mediastinum are normal. Lungs are clear. Diaphragm is normal. Bony thorax is inta ct. Pulmonary vascularity is normal. IMPRESSION: Normal chest. No change.
[2021-07-29 02:35] VITALS: RESP 18
[2021-07-29] MEDS ORDERED: SODIUM CHLORIDE 0.9% 1,000 ML IV STA (02:56)
[2021-07-29 03:24] LABS: Basophils % (A) 0 %; Eosinophils % (A) 1 %; HCT 42.5 % (34.0-46.0); HGB 14.3 gm/dL (11.4-16.0); Lymphocytes # (A) 0.9 k/uL (1.0-4.8); Lymphocytes % (A) 12 %; MCH 31.8 pg (25.0-35.0); MCHC 33.8 g/dL (31.0-37.0); MCV 94.1 fL (80.0-100.0); Mean Platelet Volume 10.9; Monocytes # (A) 0.4 k/uL (0-1.0); Monocytes % (A) 5 %; Neutrophils % (A) 81 %; Platelet Count 253 k/uL (150-450); RBC 4.51 m/uL (3.80-5.40); RDW 12.9 % (11.5-15.5); WBC 7.4 k/uL (3.8-10.6)
[2021-07-29 03:36] LABS: ALT 30 U/L (4-34); AST 32 U/L (14-36); African American GFR (CKD) >90 (>60 ml/min/1.73 sqM); Albumin 4.5 g/dL (3.5-5.0); Alkaline Phosphatase 48 U/L (38-126); Anion Gap 9 mmol/L; Blood Urea Nitrogen 19 mg/dL (7-17); Calcium 9.7 mg/dL (8.4-10.2); Carbon Dioxide 23 mmol/L (22-30); Chloride 105 mmol/L (98-107); Glucose 121 mg/dL (74-99); Magnesium 2.2 mg/dL (1.6-2.3); Non-African American GFR(CKD) >90 (>60 ml/min/1.73 sqM); Phosphorus 2.9 mg/dL (2.5-4.5); Potassium 4.6 mmol/L (3.5-5.1); Sodium 137 mmol/L (137-145); Total Bilirubin 0.3 mg/dL (0.2-1.3); Total Protein 7.2 g/dL (6.3-8.2)
[2021-07-29 03:37] LABS: Appearance,Urine Clear (Clear); Bilirubin,Urine Negative (Negative); Blood,Urine Negative (Negative); Color,Urine Colorless; Glucose,Urine (UA) Negative (Negative); Ketones,Urine Negative (Negative); Leukocyte Esterase,Urine Trace (Negative); Nitrite,Urine Negative (Negative); PH, Urine 7.5 (5.0-8.0); Protein,Urine Negative (Negative); RBC,Urine <1 /hpf (0-5); Specific Gravity,Urine 1.004 (1.001-1.035); Urobilinogen,Urine <2.0 mg/dL (<2.0); WBC,Urine 1 /hpf (0-5)
[2021-07-29 04:04] LABS: INR 0.9 (<1.2); Prothrombin Time 9.8 sec (9.0-12.0)
[2021-07-29 04:10] LABS: Partial Thromboplastin Time 19.2 sec (22.0-30.0)
[2021-07-29 05:06] VITALS: BP 132/84; PULSE 66; TEMP 97.5
== END 2021-07-29 05:07 | disposition home or self-care (01) ==
LOC: EC 00:26
DX: R00.0 Tachycardia, unspecified (principal); E78.5 Hyperlipidemia, unspecified; K21.9 Gastro-esophageal reflux disease without esophagitis; F41.9 Anxiety disorder, unspecified; F12.90 Cannabis use, unspecified, uncomplicated; Z79.82 Long term (current) use of aspirin; Z79.899 Other long term (current) drug therapy; Z80.3 Family history of malignant neoplasm of breast
CPT/HCPCS: 36415; 71045; 80053; 81001; 83605; 83735; 83880; 84100; 84439; 84443; 84484; 85025; 85610; 85730; 93005; 96360; 99285

== ENCOUNTER → 2022-02-01 | Outpatient (CLI) | payer MEDICARE ==
--- NOTE | 2022-02-01 11:27 | US ---
EXAMINATION TYPE: US abdomen complete DATE OF EXAM: 02/01/2022 COMPARISON: NONE CLINICAL HISTORY: 66-year-old female R10.12 LUQ PAIN for 6 weeks, decreased now, no injury, pain "mov es" TECHNIQUE: Multiple sonographic images of the abdomen are obtained. FINDINGS: EXAM MEASUREMENTS: Liver Length: 15.6 cm Gallbladder Wall: 0.2 cm CBD: 0.3 cm Spleen: 9.3 cm Right Kidney: 10.4 x 4.3 x 4.8 cm Left Kidney: 10.1 x 4.5 x 5.4 cm Pancreas: wnl Liver: wnl Gallbladder: wnl Evidence for sonographic Morales's sign: no CBD: wnl Spleen: wnl Right Kidney: superior pole cyst = 2.0 x 2.6 x 1.8cm . No hydronephrosis. Left Kidney: wnl Upper IVC: wnl Abd Aorta: wnl IMPRESSION: A benign 2.6 cm cortical cyst in the upper pole of the right kidney. Otherwise, unremarkable sonograp hic examination of the abdomen.
== END | disposition home or self-care (01) ==
LOC: RADUSWWP 07:41
PROVIDERS: ATTEND Family Medicine
DX: N28.1 Cyst of kidney, acquired (principal)
CPT/HCPCS: 76700

== ENCOUNTER → 2022-06-21 | Outpatient (CLI) | payer MEDICARE ==
--- NOTE | 2022-06-21 14:19 | BD ---
EXAMINATION TYPE: Axial Bone Density DATE OF EXAM: 06/21/2022 COMPARISON: NONE CLINICAL HISTORY: 66 years year old Female. ICD-10 CODE: Z78.0 ASYMPTOMATIC MENOPAUSAL STATE Height: 62 Weight: 179.2 FRAX RISK QUESTIONS: Alcohol (3 or more units per day): NO Family History (Parent hip fracture): NO Glucocorticoids (More than 3mos): NO History of Fracture in Adulthood: NO Secondary Osteoporosis: 1. Type 1 Diabetes: NO 2. Hyperthyroidism: NO 3. Menopause before 45: NO 4. Malnutrition: NO 5. Chronic liver disease: NO Rheumatoid Arthritis: NO Current Tobacco Use: NO RISK FACTORS HISTORY OF: Hip Fracture (Right/Left): NO Spine Fracture: NO History of Wrist Fracture: NO Surgery to Spine/Hip(right/left)/Wrist (right/left): NO Family History of Osteoporosis: NO Active: YES Diet low in dairy products/other sources of calcium: YES Postmenopausal woman: YES Take estrogen and/or progesterone medications: NO Lost more than 2 inches in height since high school: NO Frequent falls: NO Poor Health: NO Hyperparathyroidism: NO Adrenal Insufficiency: NO MEDICATIONS: Prednisone or other steroids: NO Thyroid Medications: NO Osteoporosis Medications:NO Additional Medications: REFLUX MEDS, CHOLESTEROL MEDS, VIT D, CALCIUM, MULTI VIT. Additional History: EXAM MEASUREMENTS: Bone mineral densitometry was performed using the [employer]. Bone mineral density as measured about the Lumbar spine is: ----- L1-L4(G/cm2): 1.155 T Score Values are as follows: ----- L1: -0.6 ----- L2: -0.3 ----- L3: -0.5 ----- L4: 0.3 ----- L1-L4: -0.2 BASELINE STUDY Bone mineral density about the R hip (g/cm2): 0.883 Bone mineral density about the L hip (g/cm2): 0.909 T Score values are as follows: -----R Neck: -1.1 -----L Neck: -0.9 -----R Total: -0.8 -----L Total: -0.5 BASELINE STUDY FRAX%s: The graph provided illustrates a 8.3% chance for a major osteoporotic fx and a 0.7% chance fo r the hips probability for fx in 10 years time. IMPRESSION: Osteopenia (T Score between -2.5 and -1) femoral neck level right hip. There is slightly increased risk of fracture and the patient may be considered for treatment. Re-Screen 2-5 years. NOTE: T-SCORE=SD OF THE YOUNG ADULT MEAN.
== END | disposition home or self-care (01) ==
LOC: RADBDWWP 12:33
PROVIDERS: ATTEND Family Medicine
DX: M85.851 Other specified disorders of bone density and structure, right thigh (principal); Z78.0 Asymptomatic menopausal state
CPT/HCPCS: 77080

== ENCOUNTER → 2023-04-24 | Outpatient (CLI) | payer MEDICARE ==
[2023-04-25 02:21] LABS: HCT 43.5 % (37.2-46.3); HGB 13.9 d/dL (12.0-15.0); MCH 31.1 pg (27.0-32.0); MCV 97.3 FL (80.0-97.0); Mean Platelet Volume 12.2 FL (9.5-12.2); NRBC Per 100 WBC 0 X 10*3/uL (0.00-0.01); Platelet Count 223 X 10*3/uL (140-440); RBC 4.47 X 10*6/uL (4.10-5.20); RDW 13.1 % (11.5-14.5); WBC 5.97 X 10*3/uL (4.50-10.00)
[2023-04-25 02:23] LABS: Blood Urea Nitrogen 13.4 mg/dL (9.0-27.0); Carbon Dioxide 27.1 mmol/L (21.6-31.8); Chloride 104 mmol/L (96-109); Potassium 4.8 mmol/L (3.5-5.5); Sodium 143 mmol/L (135-145)
== END | disposition home or self-care (01) ==
LOC: LABPAT 15:20
PROVIDERS: ATTEND Internal Medicine Clinical Cardiac Electrophysiology
DX: Z01.812 Encounter for preprocedural laboratory examination (principal); R00.2 Palpitations
CPT/HCPCS: 36415; 80051; 82565; 84520; 85027

== ENCOUNTER → 2023-05-02 | Day surgery (SDC) | payer MEDICARE ==
[2023-04-29 12:49] VITALS: BMI 32.9
[~2023-05-02] MED LIST changes: -DEXAMETHASONE SOD PHOSPHATE 10 MG/ML 1 ML VIAL IV ONE; -HEPARIN SODIUM,PORCINE 5,000 UNIT/ML 1 ML VIAL SQ ONE; -HYDROmorphone 1 MG/ML 1 ML SYRINGE IVP PRN; +LACTATED RINGERS 1,000 ML IV SCH; +METOPROLOL TARTRATE 25 MG TAB PO STA; -MIDAZOLAM 2 MG/2 ML VIAL IV PRN; -ONDANSETRON 4 MG/2 ML VIAL IVP ONE; +SODIUM CHLORIDE 0.9% 1,000 ML IV ONE; +SODIUM CHLORIDE 0.9% 1,000 ML IV SCH; -ceFAZolin 2 GM in SODIUM CHLORIDE 0.9% 100 ML IVPB ONE; -metroNIDAZOLE-NS PMX 500 MG in SALINE 1 100ML.BAG IVPB ONE
[2023-05-02 06:50] VITALS: BP 129/69; PULSE 72; RESP 16; TEMP 97.7
== END ==
LOC: CATHEP 06:00
PROVIDERS: ATTEND Internal Medicine Clinical Cardiac Electrophysiology
DX: Z53.8 Procedure and treatment not carried out for other reasons (principal); I47.1 Supraventricular tachycardia
CPT/HCPCS: 84443; 86850; 86900; 86901

== ENCOUNTER → 2023-07-08 | Outpatient (CLI) | payer MEDICARE ==
--- NOTE | 2023-07-08 13:00 | US ---
EXAMINATION TYPE: US thyroid st tissue head/neck DATE OF EXAM: 07/08/2023 COMPARISON: NONE CLINICAL INDICATION: Female, 67 years old with history of E05.90 SUBCLINICAL HYPERTHYROIDISM; Abnorma l labs. GLAND SIZE: Right Lobe: 5.5 x 2.3 x 1.8 cm Overall Parenchyma: heterogenous Left Lobe: 5.0 x 2.0 x 1.9 cm Overall Parenchyma: heterogenous Isthmus Thickness: 0.5 cm NODULES- Multiple bilateral subcentimeter lesions visualized with largest measured RIGHT: # of nodules measured on right: 1 1. 0.6 X 0.4 x 0.3 cm, mid lateral, mixed cystic and solid, hypoechoic nodule, which is wider than tall, with smooth margins, without echogenic foci. TR3. Prior size: No prior LEFT: # of nodules measured on left: 1 1. 0.6 X 0.4 x 0.4 cm, mid mid, mixed cystic and solid, hypoechoic nodule, which is wider than tall , with smooth margins, without echogenic foci.TR3. Prior size: No prior ISTHMUS: # of nodules measured in the isthmus: 0 Bilateral neck scanned, no evidence of lymphadenopathy. IMPRESSION: Bilateral subcentimeter TR 3 nodules. ACR TI-RADS LEVEL: TR-RADS 3 - Mildly Suspicious: Follow if > 1.5 cm, FNA if > 2.5 cm *Highest TI-RADS level nodule reported
--- NOTE | 2023-07-08 14:25 | NM ---
EXAMINATION TYPE: NM thyroid image only DATE OF EXAM: 07/08/2023 COMPARISON: Thyroid ultrasound same date CLINICAL INDICATION: Female, 67 years old with history of E05.90 THYROTOXICOSIS,; TECHNIQUE: After the intravenous administration of 9.5 mCi Tc 99m Sodium Pertechnetate. Image only r equested. FINDINGS/IMPRESSION: Diffuse heterogenous uptake of radiotracer throughout the thyroid gland. No ectopic thyroid tissue id entified. Thyroid uptake is above the salivary glands.
[2023-07-08 15:53] LABS: T4, Free (Free Thyroxine) 1.1 ng/dL (0.80-1.80)
== END | disposition home or self-care (01) ==
LOC: RADNMMAIN 10:41
PROVIDERS: ATTEND Internal Medicine Endocrinology, Diabetes & Metabolism
DX: E05.90 Thyrotoxicosis, unspecified without thyrotoxic crisis or storm (principal); E04.2 Nontoxic multinodular goiter
CPT/HCPCS: 76536; 78013; 84432; 84439; 84443; 84480

== ENCOUNTER → 2023-07-25 | Outpatient (CLI) | payer MEDICARE ==
[2023-07-25 22:49] LABS: Gliadin AB IgA, Deaminated Negative (Negative); Gliadin AB IgA, Unit 1.1 U/mL; Gliadin AB IgG, Deaminated Negative (Negative); Gliadin AB IgG, Unit 2.2 U/mL
== END | disposition home or self-care (01) ==
LOC: LABWHC1 14:46
PROVIDERS: ATTEND Internal Medicine Gastroenterology
DX: K52.9 Noninfective gastroenteritis and colitis, unspecified (principal)
CPT/HCPCS: 36415; 83516

== ENCOUNTER → 2023-09-03 | Outpatient (CLI) | payer MEDICARE ==
[2023-09-03 15:40] LABS: T4, Free (Free Thyroxine) 1.05 ng/dL (0.80-1.80)
== END | disposition home or self-care (01) ==
LOC: LABWHC1 09:04
PROVIDERS: ATTEND Internal Medicine Endocrinology, Diabetes & Metabolism
DX: E05.90 Thyrotoxicosis, unspecified without thyrotoxic crisis or storm (principal)
CPT/HCPCS: 36415; 84439; 84443; 84480

== ENCOUNTER → 2023-09-17 | Outpatient (CLI) | payer MEDICARE ==
[2023-09-17 16:17] LABS: Thyroid Peroxidase Antibodies <9.0 U/mL (0.0-33.0)
[2023-09-17 17:55] LABS: Clam IgE <0.10 kU/L; Codfish IgE <0.10 kU/L; Peanut IgE <0.10 kU/L; Scallop IgE <0.10 kU/L; Shrimp IgE <0.10 kU/L; Soybean IgE <0.10 kU/L; Walnut IgE (Food) <0.10 kU/L
[2023-09-17 20:26] LABS: Egg White IgE <0.10 kU/L
[2023-09-18 12:02] LABS: Crab IgE 0.17 kU/L (<0.10); Crab IgE Class CLASS 0/1; Lettuce IgE Class CLASS 0; Pork IgE Class CLASS 0; Potato IgE <0.10 kU/L (<0.10); Potato IgE Class CLASS 0; Salmon IgE <0.10 kU/L (<0.10); Salmon IgE Class CLASS 0
[2023-09-18 12:03] LABS: Apple IgE Class CLASS 0; Oat IgE Class CLASS 0; Onion IgE <0.10 kU/L (<0.10); Onion IgE Class CLASS 0; Yeast Bakers/Brew IgE <0.10 kU/L (<0.10); Yeast Bakers/Brew IgE Class CLASS 0
[2023-09-18 12:04] LABS: Celery IgE <0.10 kU/L (<0.10); Celery IgE Class CLASS 0; Chicken IgE Class CLASS 0; Chocolate IgE Class CLASS 0; Gluten IgE Class CLASS 1; Lobster IgE <0.10 kU/L (<0.10); Lobster IgE Class CLASS 0
[2023-09-18 12:05] LABS: Avocado Class CLASS 0; Banana IgE Class CLASS 0; Coffee IgE <0.10 kU/L (<0.10); Coffee IgE Class CLASS 0; Hazelnut IgE <0.10 kU/L (<0.10); Hazelnut IgE Class CLASS 0; Kiwi IgE <0.10 kU/L (<0.10); Kiwi IgE Class CLASS 0; Latex IgE Class CLASS 0; Tea IgE <0.10 kU/L (<0.10); Tea IgE Class CLASS 0
== END | disposition home or self-care (01) ==
LOC: LABWHC1 08:49
PROVIDERS: ATTEND Otolaryngology
DX: E01.8 Other iodine-deficiency related thyroid disorders and allied conditions (principal); J30.89 Other allergic rhinitis
CPT/HCPCS: 36415; 82785; 86001; 86003; 86376

== ENCOUNTER → 2023-10-04 | Outpatient (CLI) | payer MEDICARE ==
--- NOTE | 2023-10-04 13:55 | MR ---
EXAMINATION TYPE: MR brain and iac wo/w con DATE OF EXAM: 10/04/2023 1:14 PM CLINICAL INDICATION:Female, 67 years old with history of H93.11 TINNITUS; PHH, COMPARISON: None TECHNIQUE: Multi planar, multi sequence imaging was performed through the brain. Specialized thin s equences were obtained through the internal auditory canals. Pre-and post gadolinium sequences were obtained. MR contrast: IV Contrast: 8 cc Gadavist. FINDINGS: The luna-white junctions, ventricular system, and cisterns appear unremarkable. Scattered foci of h igh T2 signal intensity are seen within the periventricular white matter. Midline structures show no abnormality. Diffusion-weighted imaging shows no evidence of restricted diffusion. The susceptibility weighted images do not reveal any evidence for micro-hemorrhage. The bone marrow signal is within normal limits. Paranasal sinuses and mastoid air cells: Mild scattered paranasal sinus disease. Visualized orbits: bilaterally aphakia. After administration of gadolinium, no abnormal enhancement is seen. Small amount of enhancement is s een around the left posterior scalp measuring measuring 10 x 10 mm. The internal auditory canal sequences demonstrate no significant irregularity. The 7th cranial nerve s, 8 cranial nerves, and cerebellar pontine angles appear unremarkable. After the administration justyn olinium, no abnormal enhancement is seen within the internal auditory canals. Vascular loop: None. IMPRESSION: 1. No evidence of intracranial mass nor acute/subacute CVA. 2. No evidence of internal auditory canal abnormality. 3. Nonspecific white matter changes, likely secondary to small vessel ischemic disease. 4. Small amount of enhancement is seen around the left posterior scalp. Correlate with dermatologic examination.
== END | disposition home or self-care (01) ==
LOC: RADMRIMAIN 12:03
PROVIDERS: ATTEND Otolaryngology
DX: G93.89 Other specified disorders of brain (principal); H93.11 Tinnitus, right ear
CPT/HCPCS: 70553; A9585

== ENCOUNTER → 2023-10-05 | Outpatient (CLI) | payer MEDICARE ==
--- NOTE | 2023-10-05 17:17 | MR ---
EXAMINATION TYPE: MR shoulder LT wo con DATE OF EXAM: 10/05/2023 COMPARISON: None HISTORY: Palpable lump on left anterior/superior shoulder, pain/stiffness. TECHNIQUE: Multiplanar, multisequence imaging of the left shoulder is performed without contrast. FINDINGS: There is mild edema the lateral humeral head. There is mild degenerative change of the AC joint. There is a small subacromial spur resulting in mil d shoulder impingement. There is thickening of both the infraspinatus and supraspinatus tendons consistent with tendinosis. I n addition there is a large rim rent tear of the supraspinatus tendon attachment. There is intrasubst ance tears of the infraspinatus and supraspinatus at the musculotendinous junctions. . The biceps anchor and cartilaginous labrum are intact. The biceps tendon is normal in size and in position within the bicipital groove. The subscapularis tendon is intact. Mild subacromial and subdeltoid bursitis. IMPRESSION: 1. Tears of the infraspinatus and supraspinatus tendons. No retraction of the musculotendinous juncti ons. 2. Mild shoulder impingement secondary to spurring of the acromium and mild degeneration of the AC man int 3. Mild deltoid and subacromial bursitis.
== END | disposition home or self-care (01) ==
LOC: RADMRIMAIN 12:41
PROVIDERS: ATTEND Orthopaedic Surgery
DX: M19.012 Primary osteoarthritis, left shoulder (principal); M25.812 Other specified joint disorders, left shoulder; M75.52 Bursitis of left shoulder; M75.102 Unspecified rotator cuff tear or rupture of left shoulder, not specified as traumatic

== ENCOUNTER → 2023-10-30 | Outpatient (CLI) | payer MEDICARE ==
[2023-10-30 18:37] LABS: T4, Free (Free Thyroxine) 1.07 ng/dL (0.80-1.80)
== END | disposition home or self-care (01) ==
LOC: LABWHC1 12:39
PROVIDERS: ATTEND Internal Medicine Endocrinology, Diabetes & Metabolism
DX: E05.90 Thyrotoxicosis, unspecified without thyrotoxic crisis or storm (principal)
CPT/HCPCS: 36415; 84439; 84443; 84480

== ENCOUNTER → 2024-02-12 | Outpatient (CLI) | payer MEDICARE ==
[2024-02-13 04:30] LABS: T4, Free (Free Thyroxine) 0.92 ng/dL (0.80-1.80)
== END | disposition home or self-care (01) ==
LOC: LABWHC1 15:39
PROVIDERS: ATTEND Internal Medicine Endocrinology, Diabetes & Metabolism
DX: E05.90 Thyrotoxicosis, unspecified without thyrotoxic crisis or storm (principal)
CPT/HCPCS: 36415; 84439; 84443; 84480

== ENCOUNTER → 2024-05-26 | Outpatient (CLI) | payer MEDICARE | END | disposition home or self-care (01) | LOC: LABWHC1 14:19 | PROVIDERS: ATTEND Internal Medicine Endocrinology, Diabetes & Metabolism | DX: E05.90 Thyrotoxicosis, unspecified without thyrotoxic crisis or storm (principal) | CPT/HCPCS: 36415; 84439; 84443; 84480 ==

== ENCOUNTER 2024-09-28 12:36 | Day surgery (SDC) | payer MEDICARE ==
[~2024-09-28 12:36] MED LIST changes: -LACTATED RINGERS 1,000 ML IV SCH; -METOPROLOL TARTRATE 25 MG TAB PO STA; -SODIUM CHLORIDE 0.9% 1,000 ML IV ONE
[2024-09-28] MEDS: SODIUM CHLORIDE 0.9% 1,000 ML IV SCH (12:45)
[2024-09-28] MEDS: IV FLUID CONTINUATION 1,000 ML IV ONE (12:46)
[2024-09-28 13:00] VITALS: BP 143/66; RESP 16; TEMP 98.6
[2024-09-28] MEDS: LIDOCAINE 1% INJ 10MG/ML (20 ML MDV) SQ ONE (14:10)
--- NOTE | 2024-09-28 14:23 | P.EPPROC ---
- EP Procedure Note Electrophysiology Procedure Note: Loop monitor implant Primary physicians: Dye Beck Reel Operator: Dr. Mireles Indication: Palpitations and cryptogenic stroke Patient was brought to the EP lab in a fasting state. Written informed consent was obtained prior to the procedure. The left pectoral area was prepped and draped per protocol. Intravenous antibiotic was administered preoperatively. A subcutaneous Loop monitor was implanted successfully and the wound was closed per protocol. The device was programmed to detect significant cathy- arrhythmic and tachy-arrhythmic events, per protocol. Device and programming details:
--- NOTE | 2024-09-28 14:30 | P.PRLE ---
RE: Carmelita Schroeder Dear Karin Mae underwent implantation of a loop monitor for recurrent palpitations and a remote history of TIA with an abnormal MRI I will keep you posted if you document any arrhythmias that require additional treatment Thank you for entrusting me with the care of the patient Warm regards Sincerely Abhinav Mireles
[2024-09-28 14:49] VITALS: PULSE 60
== END 2024-09-28 14:43 | disposition home or self-care (01) ==
LOC: CATHEP 12:36
PROVIDERS: ATTEND Internal Medicine Clinical Cardiac Electrophysiology
DX: R00.2 Palpitations (principal); R94.39 Abnormal result of other cardiovascular function study; E03.9 Hypothyroidism, unspecified; E78.5 Hyperlipidemia, unspecified; Z91.041 Radiographic dye allergy status; Z88.8 Allergy status to other drugs, medicaments and biological substances; Z79.899 Other long term (current) drug therapy; Z86.73 Personal history of transient ischemic attack (TIA), and cerebral infarction without residual deficits
CPT/HCPCS: 33285; J0690; J2003

== ENCOUNTER 2025-01-23 20:54 | Emergency (ER) | payer MEDICARE ==
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
[2025-01-23 21:48] LABS: Basophils % (A) 0 %; Eosinophils # (A) 0.1 k/uL (0-0.7); Eosinophils % (A) 2 %; HCT 41.7 % (34.0-46.0); HGB 13.8 gm/dL (11.4-16.0); Lymphocytes # (A) 2.5 k/uL (1.0-4.8); Lymphocytes % (A) 45 %; MCH 31.1 pg (25.0-35.0); MCHC 33.2 g/dL (31.0-37.0); MCV 93.8 fL (80.0-100.0); Mean Platelet Volume 9.3; Monocytes # (A) 0.4 k/uL (0-1.0); Monocytes % (A) 7 %; Neutrophils # (A) 2.4 k/uL (1.3-7.7); Neutrophils % (A) 43 %; Platelet Count 212 k/uL (150-450); RBC 4.45 m/uL (3.80-5.40); RDW 12.9 % (11.5-15.5); WBC 5.6 k/uL (3.8-10.6)
[2025-01-23] MEDS: SODIUM CHLORIDE 0.9% 1,000 ML IV ONE (21:51)
[2025-01-23 22:04] LABS: ALT 29 U/L (4-34); African American GFR (CKD) >90 (>60 ml/min/1.73 sqM); Albumin 4.9 g/dL (3.5-5.0); Anion Gap 7 mmol/L; Blood Urea Nitrogen 14 mg/dL (7-17); Calcium 9.9 mg/dL (8.4-10.2); Carbon Dioxide 29 mmol/L (22-30); Chloride 101 mmol/L (98-107); Glucose 103 mg/dL (74-99); Non-African American GFR(CKD) >90 (>60 ml/min/1.73 sqM); Phosphorus 3.2 mg/dL (2.5-4.5); Sodium 137 mmol/L (137-145); Total Bilirubin 0.7 mg/dL (0.2-1.3); Total Protein 7.4 g/dL (6.3-8.2)
[2025-01-23 22:05] LABS: Potassium 4.5 mmol/L (3.5-5.1)
[2025-01-23 22:06] LABS: AST 41 U/L (14-36); Alkaline Phosphatase 37 U/L (38-126); Magnesium 2.1 mg/dL (1.6-2.3)
--- NOTE | 2025-01-23 22:06 | CT ---
EXAMINATION TYPE: CT brain wo con DATE OF EXAM: 01/23/2025 9:52 PM COMPARISON: None. CLINICAL INDICATION: Female, 69 years old with history of weakness, Patient states that she is not fe eling well. Started a couple new medicaions. High BP and feeling dizzy TECHNIQUE: CT of the brain is performed utilizing 3 mm thick sections through the posterior fossa and 3 mm thick sections through the remaining calvarium. Study is performed within 24 hours of arrival to the hospital. Contrast used: mL of , (none if empty) CT DLP: 1141.4 mGycm, Automated exposure control for dose reduction was used. FINDINGS: No abnormal hyperdensity is present to suggest an acute intracranial hemorrhage. No mass lesion is evident. No acute infarcts are evident. Ventricles and sulci are appropriate for the patient age. Paranasal sinuses and mastoid air cells within the [id number] are clear. IMPRESSION: 1. No acute intracranial process. Follow up MRI can be performed as clinically indicated. [facility], , 01/23/2025 10:03 PM
[2025-01-23 22:57] VITALS: BP 115/78; PULSE 70; RESP 18; TEMP 98.4
== END 2025-01-23 22:59 | disposition home or self-care (01) ==
LOC: EC 20:54
DX: R42 Dizziness and giddiness (principal); I10 Essential (primary) hypertension; Z91.013 Allergy to seafood; Z91.012 Allergy to eggs; Z91.018 Allergy to other foods; Z91.041 Radiographic dye allergy status
CPT/HCPCS: 36415; 70450; 80053; 83605; 83735; 84100; 84484; 85025; 93005; 96360; 99284

== ENCOUNTER → 2025-01-26 | Outpatient (CLI) | payer MEDICARE ==
--- NOTE | 2025-01-26 14:04 | USB ---
Reason for Exam: Clinical finding. Patient History: Menarche at age 11. First Full-Term at age 26. Left ovary removed at age 46. Hysterectomy at age 46. Maternal aunt had breast cancer. Paternal aunt had breast cancer at or over age 50. Maternal cousin had breast cancer, age 60. Maternal cousin had breast cancer, age 68. Mother had breast cancer, age 43. Risk Values: Danyelle 5 year model risk: 3.4%. NCI Lifetime model risk: 9.7%. Technique: Method: Whole Breast Handheld. Prior Study Comparison: 02/15/2023 Bilateral Diagnostic Ultrasound, [facility] . Findings: The whole breast of both breasts, the axilla of both breasts and the retroareolar of both breasts were scanned. A complete US of all four quadrants of the both breasts, axilla, and retro-areolar region were reviewed. No solid or cystic masses are identified. Mild duct ectasia on the left. Overall Assessment: Benign, BI-RAD 2 Management: Screening Mammogram of both breasts in 1 year. See note below in regards to the patient's increased 5 year Danyelle score. A clinical breast exam by your physician is recommended on an annual basis and results should be correlated with mammographic findings. This exam should not preclude additional follow-up of suspicious palpable abnormalities. Results were given to the patient verbally at the time of exam. Note on Danyelle scores and lifetime risk: 1. A Danyelle score greater than 3% is considered moderate risk. If this is the case, consider specialist referral to assess eligibility for a risk reducing agent. 2. If overall lifetime risk for the development of breast cancer is 20% or higher, the patient may qualify for future screening with alternating mammogram and breast MRI. [facility], , 01/26/2025 2:02 PM. Electronically signed and approved by: Isabela Velez M.D. Radiologist
--- NOTE | 2025-01-26 15:29 | MM ---
Reason for Exam: Screening (asymptomatic). Last screening mammogram was performed 12 month(s) ago. Patient History: Menarche at age 11. First Full-Term at age 26. Left ovary removed at age 46. Hysterectomy at age 46. Maternal aunt had breast cancer. Paternal aunt had breast cancer at or over age 50. Maternal cousin had breast cancer, age 60. Maternal cousin had breast cancer, age 68. Mother had breast cancer, age 43. Risk Values: Danyelle 5 year model risk: 3.4%. NCI Lifetime model risk: 9.7%. Prior Study Comparison: 12/08/2015 Bilateral Screening Mammogram, [facility] . 12/12/2016 Bilateral Screening Mammogram, [facility] . 12/17/2017 Bilateral Screening Mammogram, [facility] . 03/25/2019 Bilateral Screening Mammogram, [facility] . 03/13/2021 Bilateral Screening Mammogram, [facility] . 02/06/2022 Bilateral Screening Mammogram, [facility] . 02/15/2023 Bilateral Screening Mammogram, [facility] . 02/15/2023 Bilateral Diagnostic Ultrasound, [facility] . 02/18/2024 Bilateral Screening Mammogram, [facility] . Tissue Density: The breasts are heterogeneously dense, which may obscure small masses. Findings: Analyzed By CAD. A few scattered benign punctate calcifications are noted. The edge of a loop recorder projects centrally posterior left MLO view. There is no suspicious group of microcalcifications or new suspicious mass in either breast. Overall Assessment: Benign, BI-RAD 2 Management: Screening Mammogram of both breasts in 1 year. See note below in regards to the patient's increased 5 year Danyelle score. Patient should continue monthly self-breast exams. A clinical breast exam by your physician is recommended on an annual basis. This exam should not preclude additional follow-up of suspicious palpable abnormalities. Note on Danyelle scores and lifetime risk: 1. A Danyelle score greater than 3% is considered moderate risk. If this is the case, consider specialist referral to assess eligibility for a risk reducing agent. 2. If overall lifetime risk for the development of breast cancer is 20% or higher, the patient may qualify for future screening with alternating mammogram and breast MRI. [facility], Workstation: [employer], 01/26/2025 3:27 PM. Electronically signed and approved by: Isabela Velez M.D. Radiologist
== END | disposition home or self-care (01) ==
LOC: RADMAMWWP 09:51
PROVIDERS: ATTEND Family Medicine
DX: Z12.31 Encounter for screening mammogram for malignant neoplasm of breast (principal); R92.333 Mammographic heterogeneous density, bilateral breasts; Z78.0 Asymptomatic menopausal state; Z80.3 Family history of malignant neoplasm of breast
CPT/HCPCS: 77063; 77067

== ENCOUNTER → 2025-01-28 | Outpatient (CLI) | payer MEDICARE ==
--- NOTE | 2025-01-28 17:21 | BD ---
EXAMINATION TYPE: Axial Bone Density DATE OF EXAM: 01/28/2025 CLINICAL HISTORY: 69 years old Female. ICD-10 CODE: Z78.0 POST CANDI , Additional History: Height: 61.25 Weight: 171.7 FRAX RISK QUESTIONS: Alcohol (3 or more units per day): no Family History (Parent hip fracture): no Glucocorticoids (More than 3mos): no (Ex: prednisone, prednisolone, methylprednisolone, dexamethasone, and hydrocortisone). History of Fracture in Adulthood: finger Secondary Osteoporosis: 1. Type 1 Diabetes: no 2. Hyperthyroidism: yes 3. Menopause before 45: no 4. Malnutrition: no 5. Chronic liver disease: no Rheumatoid Arthritis: no Current Tobacco Use: no RISK FACTORS HISTORY OF: Hip Fracture (Right/Left): no Spine Fracture: no History of Wrist Fracture: no Surgery to Spine/Hip(right/left)/Wrist (right/left): no MEDICATIONS: Thyroid Medications: Methimazole How Long: past 2-3 years Osteoporosis Medications: no EXAM MEASUREMENTS: Bone mineral densitometry was performed using the [employer] System. Bone mineral density as measured about the Lumbar spine is: ----- L1-L4(G/cm2): 1.165 T Score Values are as follows: ----- L1: -1.2 ----- L2: -0.7 ----- L3: 0.0 ----- L4: 1.0 ----- L1-L4: -0.1 Z Score Values are as follows: ----- L1: 0.0 ----- L2: 0.6 ----- L3: 1.2 ----- L4: 2.3 ----- L1-L4: 1.1 Bone mineral density has: increased 0.9 % since study of: 06/21/2022 Bone mineral density about the R hip (g/cm2): 0.914 Bone mineral density about the L hip (g/cm2): 0.959 T Score values are as follows: -----R Neck: -0.7 -----L Neck: -0.6 -----R Total: -0.7 -----L Total: -0.4 Z Score values are as follows: -----R Neck: 0.7 -----L Neck: 0.8 -----R Total: 0.4 -----L Total: 0.8 Bone mineral density has: increased 1.2 % since study of: 06/21/2022 FRAX%s: The graph provided illustrates a 12.5% chance for a major osteoporotic fx and a 1.0% chance f or the hips probability for fx in 10 years time. IMPRESSION: Normal (Values between +1 and -1 indicate normal bone mass). Consider repeating this study in 5 year s or sooner if there is some new clinical indication. NOTE: T-SCORE=SD OF THE YOUNG ADULT MEAN. [facility], , 01/28/2025 5:18 PM
== END | disposition home or self-care (01) ==
LOC: RADBDWWP 16:03
PROVIDERS: ATTEND Family Medicine
DX: M85.88 Other specified disorders of bone density and structure, other site (principal); Z78.0 Asymptomatic menopausal state
CPT/HCPCS: 77080